=== PATIENT | female | born 1985 | race Caucasian/White ===

== ENCOUNTER 2018-09-30 10:23 | Day surgery (SDC) | payer OTHER, SELFPAY ==
[2018-09-09 09:40] VITALS: BMI 26.2
[2018-09-30] VITALS (8 sets, daily range): BP systolic 105–125; BP diastolic 62–78; PULSE 54–76; RESP 16–18; TEMP 36.5–37.9; O2SAT 99–100; BMI 25.9
[2018-09-30 11:15] LABS: Internal QC Validated? YES +Cl - CLEAR BKGD; Pregnancy, Urine Negative Negative
--- NOTE | 2018-09-30 11:30 | HERN_PTH ---
PATIENT: JAMILAH TEE [place] [facility] [id number] AGE/SX: 33/F ROOM: RE09/30/[address]: Dr. Godfrey Gilbert MD : [id number] BED: DIS: 09/30/2018 SPEC #: [id number] RECD: 09/30/18 16:04 STATUS: KATELIN ALEXUS #: [id number] JANIYA: 09/30/18 11:[address]: Godfrey Gilbert DEPT: SURGICAL PATHOLOGY RECD BY: Fernando Elaine ENTERED: 10/01/18 08:46 SP TYPE: Hernia OTHR DR: No Primary Care Phys Tissues: HERNIA Procedures: Surgery Specimen Level II HEADER OPERATION: Umbilical hernia repair PRE-OP DIAGNOSIS: Umbilical hernia without obstruction or gangrene TISSUE SUBMITTED: Hernia sac MICROSCOPIC DIAGNOSIS Hernia sac: Mesothelial-lined fibroadipose and fibroconnective tissue, consistent with hernia sac. SJ:mike 10/02/18 MICROSCOPIC DESCRIPTION Slides are reviewed. GROSS DESCRIPTION Received in fixative is one container labeled with the patient's name and designated hernia sac. The specimen consists of two pieces of saenz-yellow fibroadipose tissue measuring in aggregate 1.5 x 1.5 x 0.4 cm. Both pieces are bisected. The entire specimen is submitted in one cassette. / SJ:rg 10/01/18 TC:5 CPT: 52156
[2018-09-30] MEDS: Cefazolin 2 GM in 0.9% Normal Saline 100 ML IV (12:21)
[2018-09-30] MEDS: Bupiv/Epi 0.5% Mpf 30 ML Vial (12:38)
--- NOTE | 2018-09-30 12:55 | PCM.OPRPT ---
Problem List (1) Umbilical hernia Status: Acute Qualifiers: Obstruction and gangrene presence: without obstruction or gangrene Qualified Code(s): K42.9 - Umbilical hernia without obstruction or gangrene Report of Operation Date of Procedure: 09/30/18 Pre-Operative Diagnosis: Umbilical hernia Post-Operative Diagnosis: Same Surgery/Procedure Performed:: Umbilical hernia repair Specimen's removed: Hernia sac Description of Procedure: Patient was brought back to the operating room and MAC anesthesia was induced. Next the inferior umbilicus was marked and then injected with lidocaine Marcaine mixture. An incision was made in the inferior umbilical crease and the umbilical skin was retracted superiorly away from the hernia sac. The hernia sac was excised. The hernia contents were reduced into the abdomen. The umbilical opening was approximately 1 cm diameter. This was closed with 3 0-PDS [id number] sutures. The umbilicus was then irrigated and the umbilical stalk was sutured to the fascia using a 3-0 Vicryl suture. Next using 4-0 Monocryl sutures the skin was reapproximated and Steri-Strips were applied. A cotton ball was placed into the umbilicus along with a pressure dressing. The patient tolerated the procedure well and was taken to PACU in stable condition. - Admit VTE Documentation VTE Mechan Device Prophylaxis: SCD's
--- NOTE | 2018-09-30 12:59 | OP.PCM_ITS ---
Problem List (1) Umbilical hernia Status: Acute Qualifiers: Obstruction and gangrene presence: without obstruction or gangrene Qualified Code(s): K42.9 - Umbilical hernia without obstruction or gangrene Report of Operation Date of Procedure: 09/30/18 Pre-Operative Diagnosis: Umbilical hernia Post-Operative Diagnosis: Same Surgery/Procedure Performed:: Umbilical hernia repair Specimen's removed: Hernia sac Description of Procedure: Patient was brought back to the operating room and MAC anesthesia was induced. Next the inferior umbilicus was marked and then injected with lidocaine Marcaine mixture. An incision was made in the inferior umbilical crease and the umbilical skin was retracted superiorly away from the hernia sac. The hernia sac was excised. The hernia contents were reduced into the abdomen. The umbilical opening was approximately 1 cm diameter. This was closed with 3 0-PDS [id number] sutures. The umbilicus was then irrigated and the umbilical stalk was sutured to the fascia using a 3-0 Vicryl suture. Next using 4-0 Monocryl sutures the skin was reapproximated and Steri-Strips were applied. A cotton ball was placed into the umbilicus along with a pressure dressing. The patient tolerated the procedure well and was taken to PACU in stable condition. - Admit VTE Documentation VTE Mechan Device Prophylaxis: SCD's
--- NOTE | 2018-09-30 13:03 | DCINST_ITS ---
Discharge Diet: Light diet - advance as tolerated Discharge Activity: Return to Normal Activity, May Not Drive - for 2-3 days or while taking narcotic pain meds., May Shower - with the bandage in place 1-2 days after surgery. Lifting Restrictions: 20 pounds for 2 weeks. Additional Activity Instructions:: Climbing stairs is fine, walking is encouraged. Sitting in bed may be uncomfortable. Sitting up using your lateral muscles (sitting up sideways) is usually more comfortable. Do not drive, work heavy equipment of sign legal documents for 24 hours. Pain medications may cause nausea, you should typically eat light foods as you take your pain medications. Pain medications may also cause constipation. If you have difficulty with this, discuss with your doctor. Call your doctor if your incision/area has: Continuous Slow Oozing, Sudden Increased Bleeding, Increased Pain/ Swelling, Increased Redness, Foul Smelling Discharge Call your doctor if you observe: Fever of 101 or Higher Suture Line Care: Avoid Pulling/Pushing, Avoid Pinching/Bending Change Dressing in (Days):: 3 - Leave steri-strips for 1 week. May protect with a guaze bandaid. Cleanse incision/area with: Keep Dressing Clean & Dry Allergies/Adverse Reactions: Allergies citalopram hydrobromide [From Celexa] Allergy (Verified 09/23/18 16:06) Other Medications to take at Discharge fluoxetine 40 mg capsule 60 mg PO DAILY cap 09/09/18 Oxycodone HCl/Acetaminophen [Percocet 5/325] 1 - 2 tablet PO Q4H PRN PRN 7 Days #20 tablet 09/30/18 The following prescriptions were given: Oxycodone HCl/Acetaminophen [Percocet 5/325] 1 - 2 tablet PO Q4H PRN PRN 7 Days #20 tablet PRN Reason: Pain Primary Care Physician: Care Physician,No Primary [Primary Care Provider] - Test Results: Test results from this visit will be discussed in further detail at your follow- up appointment, if applicable. Please Follow Up With: Godfrey Gilbert MD When: Please call to schedule 2 week follow up appointment. [phone]
== END 2018-09-30 14:26 | disposition home or self-care (01) ==
LOC: SDC 10:24 → AC 10:25
PROVIDERS: Anesthesiology; Referring Provider Surgery; Visit Provider Surgery
PROC: (CPT 49585; principal; 2018-09-30 11:15)
DX: K42.9 Umbilical hernia without obstruction or gangrene (principal); F41.9 Anxiety disorder, unspecified; Z79.899 Other long term (current) drug therapy
CPT/HCPCS: 00830; 49585; 81025; 88302; J7120

== ENCOUNTER → 2018-11-06 16:27 | Outpatient (CLI) | payer OTHER, SELFPAY ==
[2018-09-30 10:42] VITALS: BMI 25.9
[2018-11-06 17:35] LABS: Absolute Neutrophil Count 4.2 X10^3/uL (2.0-7.7); Basophil# 0.07 X10^3/uL; Basophil% 0.9 % (0-1); Eosinophil# 0.13 X10^3/uL; Eosinophils% 1.7 % (0-5); Hematocrit 37.2 % (37-47); Hemoglobin 12.1 g/dl (12.0-15.0); Lymphocyte % 35.9 % (19-41); Mean Corp Hgb Conc 32.5 g/gl (32-36); Mean Corpuscular Hgb 28.5 pg (27.0-32.0); Mean Corpuscular Volume 87.5 fL (81-99); Mean Platelet Vol. 13.5 fl (6.2-12.0); Monocyte# 0.42 X10^3/uL; Monocyte% 5.6 % (0-10); Neutrophil # 4.19 X10^3/uL (2.7-7.7); Neutrophil % 55.8 % (47-70); Platelet Count 203 K/mm3 (150-450); RBC Distribution Width CV 13.2 % (11.6-14.6); RBC Distribution Width SD 41.4 fl (35.1-43.9); Red Blood Count 4.25 M/mm3 (4.2-5.4); White Blood Count 7.5 K/mm3 (4.4-11.0)
[2018-11-06 17:51] LABS: POSITIVE COUNT NO; POSITIVE DIFFERENTIAL NO; POSITIVE MORPHOLOGY NO
[2018-11-06 18:39] LABS: ALB/GLOB Ratio 1.2 RATIO (0.9-2.4); AST(SGOT) 19 U/L (15-37); Alanine Aminotransfer ALT/SGPT 32 U/L (13-56); Albumin, Serum 4.2 g/dL (3.2-5.0); Alkaline Phosphatase 70 U/L (45-117); Anion Gap 5 (5-15); BUN 16 mg/dL (7-18); BUN/Creat Ratio 21.9 RATIO (10-20); Calcium,Total 8.8 mg/dL (8.5-10.1); Chloride 105 mmol/L (98-107); Creatinine, Serum 0.73 mg/dL (0.55-1.02); EST Glomerular Filtration Rate 96 mL/min (>60); Est Glom Filt Rate - Afr Amer 116 mL/min (>60); Globulin 3.4 g/dL (2.2-4.2); Glucose 80 mg/dL (74-106); Potassium 4.1 mmol/L (3.5-5.1); Protein, Total 7.6 g/dL (6.4-8.2); Sodium Level 137 mmol/L (136-145)
[2018-11-06 19:22] LABS: HIV - WCH Non-Reactive (Nonreactive)
[2018-11-09 20:06] LABS: HEPATITIS B SURFACE AG Negative (Negative); Hepatitis A AB, Total Negative (Negative); Hepatitis A IgM Antibody Negative (Negative); Hepatitis B Core AB IgM Negative (Negative); Hepatitis B Core Ab Total Negative (Negative); Hepatitis C Ab <0.1 s/co ratio (0.0-0.9); QNTFERON TB Mitogen Value > 10.00 IU/mL (.); QNTFERON TB Nil Value 0.02 IU/mL (.); QNTFERON TB1+ Ag Value 0.02 IU/mL (.); QNTFERON TB2+ Ag Value 0.02 IU/mL (.)
[2018-11-10 08:14] LABS: Hep B Surface Antibodies Non Reactive (.); QNTIFERON TB Positive Criteria Negative (Negative)
== END ==
PROVIDERS: Referring Provider Physician Assistant; Visit Provider Physician Assistant
DX: L40.0 Psoriasis vulgaris (principal)
CPT/HCPCS: 36415; 80053; 85025; 86480; 86703; 86704; 86705; 86706; 86708; 86709; 86803; 87340

== ENCOUNTER → 2019-04-17 | Outpatient (CLI) | payer OTHER, SELFPAY ==
[2018-09-30 10:42] VITALS: BMI 25.9
--- NOTE | 2019-04-17 12:06 | RAD_ITS ---
STUDY: X-RAY - PELVIS REASON FOR EXAM: Female, 33 years old. Psoriatic arthropathy TECHNIQUE: One view of the pelvis was obtained. COMPARISON: None. FINDINGS: There is a non-specific bowel gas pattern. Normal visualized soft tissue structures. Normal bilateral iliac wings, sacroiliac joints and visualized sacrum. Normal visualized bilateral superior and inferior pubic rami. Normal pubic symphysis. Normal ischial tuberosities. Normal visualized right femoral head. Normal right acetabulum. Normal right hip joint. Normal visualized left femoral head. Normal left acetabulum. Normal left hip joint. RAD/Pelvis 1 or 2 Views IMPRESSION: Normal x-ray examination of the pelvis. Electronically Signed: Akira Byers MD at 22:21 EDT , Service support ,
--- NOTE | 2019-04-17 12:06 | RAD_ITS ---
STUDY: X-RAY CHEST REASON FOR EXAM: Female, 33 years old. Psoriatic arthropathy TECHNIQUE: Frontal and lateral views of the chest. COMPARISON: None. FINDINGS: The lungs are clear and expanded. There is no demonstrated pleural abnormality. Normal size heart. Normal mediastinum and jorge a. Normal visualized pulmonary arteries. Normal visualized aortic arch and descending thoracic aorta. Normal visualized thoracic spine. Normal visualized ribs, clavicles, and shoulders. There is no demonstrated abnormality of the visualized soft tissue structures of the upper abdomen. RAD/Chest PA and Lateral IMPRESSION: Normal x-ray examination of the chest. Electronically Signed: Akira Byers MD at 22:20 EDT , Service support ,
[2019-04-17 14:10] LABS: Absolute Lymphocyte Count 2.26 X10^3/uL (0.83-4.51); Absolute Neutrophil Count 3.3 X10^3/uL (2.0-7.7); Basophil# 0.06 X10^3/uL; Eosinophil# 0.11 X10^3/uL; Eosinophils% 1.8 % (0-5); Hemoglobin 12.3 g/dL (12.0-15.0); Lymphocyte # 2.26 X10^3/ul (4.0); Mean Corp Hgb Conc 33.2 g/dL (32-36); Mean Corpuscular Hgb 29.3 pg (27.0-32.0); Mean Corpuscular Volume 88.1 fL (81-99); Mean Platelet Vol. 12.9 fl (6.2-12.0); Monocyte# 0.51 X10^3/uL; Monocyte% 8.1 % (0-10); NRBC Flagged by Analyzer 0 % (0-5); Neutrophil # 3.33 X10^3/uL (2.7-7.7); Neutrophil % 52.9 % (47-70); Platelet Count 232 K/mm3 (150-450); RBC Distribution Width CV 12.2 % (11.6-14.6); RBC Distribution Width SD 39.3 fl (35.1-43.9); White Blood Count 6.3 K/mm3 (4.4-11.0)
[2019-04-17 14:26] LABS: Erythrocyte Sedimentation Rate 4 mm/hr (0-20)
[2019-04-17 14:31] LABS: ALB/GLOB Ratio 1.1 RATIO (0.9-2.4); AST(SGOT) 15 U/L (15-37); Alanine Aminotransfer ALT/SGPT 28 U/L (13-56); Alkaline Phosphatase 59 U/L (45-117); Anion Gap 8 (5-15); BUN 10 mg/dL (7-18); BUN/Creat Ratio 13.9 RATIO (10-20); CRP < 2.90 mg/L (0.0-3.0); Chloride 106 mmol/L (98-107); Creatinine, Serum 0.72 mg/dL (0.55-1.02); EST Glomerular Filtration Rate 98 mL/min (>60); Est Glom Filt Rate - Afr Amer 118 mL/min (>60); Globulin 3.7 g/dL (2.2-4.2); Glucose 81 mg/dL (74-106); Potassium 4.1 mmol/L (3.5-5.1); Protein, Total 7.7 g/dL (6.4-8.2); Rheumatoid Factor < 10.0 IU/mL (<15); Sodium Level 140 mmol/L (136-145)
[2019-04-18 09:14] LABS: Hepatitis B Surface Antibody Non-Reactive; Hepatitis B Surface Antigen Non-Reactive (Nonreactive); Hepatitis C Antibody Non-Reactive (Nonreactive)
[2019-04-19 09:32] LABS: ANTINUCLEAR ANTIBODIES DIRECT Negative (Negative)
[2019-04-20 03:08] LABS: QNTFERON TB Mitogen Value > 10.00 IU/mL (.); QNTFERON TB Nil Value 0.02 IU/mL (.); QNTFERON TB1+ Ag Value 0.02 IU/mL (.); QNTFERON TB2+ Ag Value 0.02 IU/mL (.)
[2019-04-20 09:10] LABS: CCP IgG Antibodies < 1 units (0-19); Hepatitis B Core AB IgM Negative (Negative); QNTIFERON TB Positive Criteria Negative (Negative)
== END | disposition home or self-care (01) ==
LOC: MTRAD 12:02
PROVIDERS: Referring Provider Internal Medicine Rheumatology; Visit Provider Internal Medicine Rheumatology
DX: L40.59 Other psoriatic arthropathy (principal); L40.8 Other psoriasis; M21.40 Flat foot [pes planus] (acquired), unspecified foot; F41.9 Anxiety disorder, unspecified; F32.89 Other specified depressive episodes
CPT/HCPCS: 36415; 71046; 72170; 80053; 85025; 85652; 86038; 86140; 86200; 86431; 86480; 86705; 86706; 86803; 87340

== ENCOUNTER → 2019-11-04 | Outpatient (CLI) | payer OTHER, SELFPAY ==
[2018-09-30 10:42] VITALS: BMI 25.9
[2019-11-04 17:43] LABS: Absolute Lymphocyte Count 2.74 X10^3/uL (0.83-4.51); Basophil# 0.07 X10^3/uL; Basophil% 0.8 % (0-1); Eosinophils% 1.2 % (0-5); Hematocrit 37.9 % (37-47); Hemoglobin 12.6 g/dL (12.0-15.0); Lymphocyte # 2.74 X10^3/ul (4.0); Lymphocyte % 32.7 % (19-41); Mean Corp Hgb Conc 33.2 g/dL (32-36); Mean Corpuscular Volume 87.1 fL (81-99); Mean Platelet Vol. 12.8 fl (6.2-12.0); Monocyte# 0.49 X10^3/uL; Monocyte% 5.9 % (0-10); NRBC Flagged by Analyzer 0 % (0-5); Neutrophil # 4.95 X10^3/uL (2.7-7.7); Neutrophil % 59.2 % (47-70); Platelet Count 270 K/mm3 (150-450); RBC Distribution Width CV 11.9 % (11.6-14.6); RBC Distribution Width SD 38.5 fl (35.1-43.9); Red Blood Count 4.35 M/mm3 (4.2-5.4); White Blood Count 8.4 K/mm3 (4.4-11.0)
[2019-11-04 17:53] LABS: AST(SGOT) 18 U/L (15-37); Alanine Aminotransfer ALT/SGPT 28 U/L (13-56); Albumin, Serum 4.1 g/dL (3.2-5.0); Alkaline Phosphatase 72 U/L (45-117); Anion Gap 7 (5-15); BUN 12 mg/dL (7-18); BUN/Creat Ratio 16.3 RATIO (10-20); Chloride 103 mmol/L (98-107); Creatinine, Serum 0.73 mg/dL (0.55-1.02); EST Glomerular Filtration Rate 95 mL/min (>60); Est Glom Filt Rate - Afr Amer 115 mL/min (>60); Globulin 4.2 g/dL (2.2-4.2); Glucose 80 mg/dL (74-106); Potassium 3.9 mmol/L (3.5-5.1); Protein, Total 8.3 g/dL (6.4-8.2); Sodium Level 138 mmol/L (136-145)
== END | disposition home or self-care (01) ==
LOC: MTLAB 16:16
PROVIDERS: Referring Provider Internal Medicine Rheumatology; Visit Provider Internal Medicine Rheumatology
DX: L40.59 Other psoriatic arthropathy (principal); L40.8 Other psoriasis; M21.40 Flat foot [pes planus] (acquired), unspecified foot; F41.9 Anxiety disorder, unspecified; F32.89 Other specified depressive episodes; Z79.899 Other long term (current) drug therapy
CPT/HCPCS: 36415; 80053; 85025

== ENCOUNTER → 2020-01-15 | Outpatient (CLI) | payer OTHER, SELFPAY ==
[2018-09-30 10:42] VITALS: BMI 25.9
[2020-01-18 03:06] LABS: QNTFERON TB Mitogen Value > 10.00 IU/mL (.); QNTFERON TB Nil Value 0.01 IU/mL (.); QNTFERON TB1+ Ag Value 0.02 IU/mL (.); QNTFERON TB2+ Ag Value 0.01 IU/mL (.)
[2020-01-19 00:19] LABS: QNTIFERON TB Positive Criteria Negative (Negative)
== END | disposition home or self-care (01) ==
LOC: MTLAB 16:32
PROVIDERS: Referring Provider Dermatology Pediatric Dermatology; Visit Provider Dermatology Pediatric Dermatology
DX: L40.0 Psoriasis vulgaris (principal)
CPT/HCPCS: 36415; 86480

== ENCOUNTER → 2020-01-28 | Outpatient (CLI) | payer OTHER, SELFPAY ==
[2018-09-30 10:42] VITALS: BMI 25.9
[2020-01-28 10:33] LABS: hCG Titer Quant., Serum 72 mIU/mL (1-3)
== END | disposition home or self-care (01) ==
LOC: MTLAB 08:56
PROVIDERS: Referring Provider Obstetrics & Gynecology Reproductive Endocrinology; Visit Provider Obstetrics & Gynecology Reproductive Endocrinology
DX: Z32.00 Encounter for pregnancy test, result unknown (principal)
CPT/HCPCS: 36415; 84702

== ENCOUNTER → 2020-01-30 | Outpatient (CLI) | payer OTHER, SELFPAY ==
[2018-09-30 10:42] VITALS: BMI 25.9
[2020-01-30 10:44] LABS: hCG Titer Quant., Serum 203 mIU/mL (1-3)
[2020-01-30 10:46] LABS: Thyroid Stim Hormone (TSH) 2.17 uIU/mL (0.358-3.74)
== END | disposition home or self-care (01) ==
LOC: MTLAB 08:22
PROVIDERS: Referring Provider Obstetrics & Gynecology Reproductive Endocrinology; Visit Provider Obstetrics & Gynecology Reproductive Endocrinology
DX: E03.9 Hypothyroidism, unspecified (principal); Z32.00 Encounter for pregnancy test, result unknown
CPT/HCPCS: 36415; 84443; 84702

== ENCOUNTER → 2020-07-14 16:30 | Outpatient (CLI) | payer OTHER, SELFPAY ==
[2020-07-14 16:05] VITALS: BMI 29.9
[2020-07-14 16:53] LABS: Absolute Lymphocyte Count 2.17 X10^3/uL (0.83-4.51); Absolute Neutrophil Count 10.1 X10^3/uL (2.0-7.7); Basophil# 0.06 X10^3/uL; Basophil% 0.5 % (0-1); Eosinophil# 0.07 X10^3/uL; Eosinophils% 0.5 % (0-5); Hematocrit 32.9 % (37-47); Hemoglobin 10.9 g/dL (12.0-15.0); Lymphocyte # 2.17 X10^3/ul (4.0); Lymphocyte % 16.3 % (19-41); Mean Corp Hgb Conc 33.1 g/dL (32-36); Mean Corpuscular Volume 90.6 fL (81-99); Mean Platelet Vol. 11.7 fl (6.2-12.0); Monocyte# 0.85 X10^3/uL; Monocyte% 6.4 % (0-10); NRBC Flagged by Analyzer 0 % (0-5); Neutrophil # 10.08 X10^3/uL (2.7-7.7); Neutrophil % 75.8 % (47-70); Platelet Count 214 K/mm3 (150-450); RBC Distribution Width CV 12.5 % (11.6-14.6); RBC Distribution Width SD 41.1 fl (35.1-43.9); Red Blood Count 3.63 M/mm3 (4.2-5.4); White Blood Count 13.3 K/mm3 (4.4-11.0)
[2020-07-14 17:30] LABS: Glucose Challenge Gest 1H 50g 76 mg/dL (70-140)
== END ==
PROVIDERS: Visit Provider Obstetrics & Gynecology
DX: O09.819 Supervision of pregnancy resulting from assisted reproductive technology, unspecified trimester (principal); Z3A.00 Weeks of gestation of pregnancy not specified
CPT/HCPCS: 36415; 82950; 85025

== ENCOUNTER → 2020-09-09 | Outpatient (CLI) | payer OTHER, SELFPAY ==
[2020-09-09 16:06] VITALS: BMI 30.7
== END | disposition home or self-care (01) ==
LOC: LABSPEC 18:17
PROVIDERS: Visit Provider Obstetrics & Gynecology
DX: Z34.90 Encounter for supervision of normal pregnancy, unspecified, unspecified trimester (principal)
CPT/HCPCS: 87081

== ENCOUNTER → 2020-09-10 14:57 | Outpatient (CLI) | payer OTHER, SELFPAY ==
[2020-09-09 16:06] VITALS: BMI 30.7
--- NOTE | 2020-09-10 15:00 | US_ITS ---
STUDY: SECOND AND THIRD TRIMESTER OBSTETRICAL ULTRASOUND - LIMITED REASON FOR EXAM: Female, 35 years old GROWTH LMP: 12/31/2019 PRIOR ULTRASOUND: None. TECHNIQUE: Transabdominal TECHNICAL QUALITY: Adequate. FINDINGS: There is a single intrauterine fetus. The fetus is in a cephalic presentation. There is demonstrated cardiac activity with a heart rate of 137 bpm. There is a normal amniotic fluid volume. The largest amniotic fluid pocket measures 5.2 cm. The amniotic fluid index (NELDA) is 17.8 cm. The placenta is fundal in location. There are Grade 2 placental changes. The cervix measures 3.1 cm in length. BIOMETRY: BPD: 8.8 cm: 35 weeks, 2 days HC: 31.8 cm: 35 weeks, 5 days AC: 32.8 cm: 36 weeks, 5 days FL: 6.5 cm: 33 weeks, 4 days Age by LMP: 36 weeks, 2 days. TIFFANIE by LMP: 10/06/2020. age by current US: 35 weeks, 2 days. TIFFANIE by current US: 10/13/2020. Estimated weight: 2774 grams, +/- 416 grams, 40 percentile. Gender: US/OB Limited With Biometrics IMPRESSION: Living intrauterine of 35 weeks 2 days as described above. Electronically Signed: Carlos Bob MD at 7:12 EST Tel , Service support ,
== END ==
PROVIDERS: Referring Provider Obstetrics & Gynecology; Visit Provider Obstetrics & Gynecology
DX: O26.843 Uterine size-date discrepancy, third trimester (principal); Z3A.00 Weeks of gestation of pregnancy not specified
CPT/HCPCS: 76816

== ENCOUNTER 2020-09-24 17:56 | Inpatient (IN) | payer OTHER, SELFPAY ==
[2020-06-28 16:24] VITALS: BMI 29.2
[2020-08-26 16:05] VITALS: BMI 30.2
[2020-09-23 16:05] VITALS: BMI 31.6
[2020-09-24] VITALS (12 sets, daily range): BP systolic 89–123; BP diastolic 40–91; PULSE 56–94; RESP 13–21; TEMP 36.3–36.8; O2SAT 97–100; BMI 29.3
[2020-09-24] MEDS: Lactated Ringers 1,000 ML 999 ML IV (18:26)
[2020-09-24 18:53] LABS: Absolute Lymphocyte Count 2.21 X10^3/uL (0.83-4.51); Absolute Neutrophil Count 9.2 X10^3/uL (2.0-7.7); Basophil# 0.04 X10^3/uL; Basophil% 0.3 % (0-1); Eosinophil# 0.05 X10^3/uL; Eosinophils% 0.4 % (0-5); Hematocrit 37.6 % (37-47); Hemoglobin 12.8 g/dL (12.0-15.0); Lymphocyte # 2.21 X10^3/ul (4.0); Mean Corpuscular Hgb 30.4 pg (27.0-32.0); Mean Corpuscular Volume 89.3 fL (81-99); Mean Platelet Vol. 12.4 fl (6.2-12.0); Monocyte# 0.72 X10^3/uL; Monocyte% 5.9 % (0-10); NRBC Flagged by Analyzer 0 % (0-5); Neutrophil # 9.22 X10^3/uL (2.7-7.7); Neutrophil % 74.9 % (47-70); Platelet Count 231 K/mm3 (150-450); RBC Distribution Width CV 12.4 % (11.6-14.6); RBC Distribution Width SD 40.3 fl (35.1-43.9); Red Blood Count 4.21 M/mm3 (4.2-5.4); White Blood Count 12.3 K/mm3 (4.4-11.0)
[2020-09-24] MEDS: Lactated Ringers 1,000 ML 150 ML IV (19:27)
--- NOTE | 2020-09-24 20:04 | HP.PCM_ITS ---
- Problem List (1) SROM (spontaneous rupture of membranes) Status: Acute (2) 35 weeks gestation of Status: Acute Comment: electronic covid test ordered ( scheduled for 09/23/20 at 1655) (3) Anemia affecting Status: Acute Comment: iron added (4) Anxiety and depression Status: Acute Comment: prozac, counseling and psychiatrist. (5) Conceived by in vitro fertilization Status: Acute Comment: echo normal 06/11/20; growth q4w (6) History of delivery Status: Acute Comment: previous cs x 2, plan repeat with SM. Scheduled 10/01/20 @ 7:30 Covid test ordered (7) Status: Acute Qualifiers: Comment: carrier screening cystic fibrosis and SMA negative, nl preimplantation genetics. PRR normal anatomy scan 05/20/20 (8) Supervision of resulting from assisted reproductive technology Status: Acute Comment: PRR TIFFANIE 10/06/19 surprise PC Case, Marla Ld (9) Uterine size-date discrepancy in third trimester Status: Acute Comment: growth US- NL History and Physical Date of Admission: 09/24/20 Intake Vital Signs 09/23/20 Height 5 ft 09/23/20 Weight: 162 lb 09/23/20 BMI 31.6 09/23/20 BP 138/82 H Intake Visit Reasons: 38 WK OB Chief Complaint: est ob Manager [employer] Required: No Is patient in pain?: No Allergies citalopram hydrobromide [From Celexa] Allergy (Verified 09/23/20 16:06) Other Medications fluoxetine 40 mg capsule 60 mg PO DAILY cap 09/09/18 [History Confirmed 09/23/20] aspirin 81 mg tablet,delayed release 81 mg PO DAILY 04/05/20 [History Confirmed 09/23/20] certolizumab pegol 200 mg SC Q2W 04/05/20 [History Confirmed 09/23/20] vitamin #56-iron 35 mg and 5 mg-folic acid 1 mg-dha capsule 1 cap PO DAILY 04/05/20 [History Confirmed 09/23/20] Naproxen [Naprosyn] 250 - 500 mg PO Q8H PRN PRN #30 tab 09/24/20 [Rx] Oxycodone HCl/Acetaminophen [Percocet 5-325] 1 - 2 tab PO Q6H PRN PRN 7 Days #15 tab 09/24/20 [Rx] Last Menstral Period: 01/19/20 Zika: Zika virus screening: Negative : No PFSH PFSH Medical History Infertility (Acute) Psychiatric disorder (Acute) Thyroid disease (Acute) Surgical History Carpal tunnel syndrome (Acute) delivery delivered (Acute) History of umbilical hernia (Acute) Family History Grandmother Breast cancer Social History (Updated 09/24/20 @ 19:[address] Ernestine Villa MD) Smoking Status: Never smoker second hand exposure: No alcohol intake: current details: social use/pre substance use type: does not use caffeine: Yes what type of physical activity do you participate in: running frequency: 3-4 times per week duration: 15-30 minutes/day seatbelt use: always do you feel safe at home: Yes additional social history: Spouse Ld Pregancy History 2 Elective abortions Hx Para 2 Spontaneous abortions Hx # Term Pregnancies Ectopic pregnancies Hx # Pregnancies Multiple births # of living children Past Pregnancies Del. Date Name GA/Weeks Outcome Route Bth Weight Infant Gen Labor Lgth Anesthesia Del Locatn Provider FOB Unknown Marla 03/25/[address] [facility] MARIBELL 06/14/17 Case 36 live - full term C- section Male [facility] MARIBELL HPI 38 WK OB: Details: JAMILAH TEE is a 35 year old G3, P2 at 38 weeks presents with clear rupture of membranes since this evening. Patient has occasional contractions no vaginal bleeding admits good movement. OB Visit TIFFANIE Calculator Estimated Delivery Date Method Current WG Current Estimate 10/06/20 LMP (Certain) 38w 2d Expected Delivery Route/Plan RLTCS w/ SM Specific Issue/Plans flu vaccine: given tdap vaccine: given 07/29/20 rhogam: na LARC form signed: declines movement and labor precautions reviewed. Problem list reviewed and updated with the most current plan of care details and appropriate orders placed. Relevant counseling for the gestational age provided. Continue routine care and follow up unless otherwise noted in visit notes/problem list details Initial Weight: 140 lb Date EGA Weight BP Urine Prot Glucose FHR FuHt Pres Dilation Effaced St Visit Note 04/05/20 13w 5d 145 lb 6 oz (+5 lb 6 oz) 140 SM- no vb lof crmaping. RUBEN RGI 05/03/20 17w 5d 145 lb (+5 lb) 110/72 Negative Negative 150 SM- no vb cramping, considering afp 06/01/20 21w 6d 149 lb (+9 lb) 149 lb (+9 lb) 120/82 Negative Negative 146 22 MH:No VB, LOF. Good FM. Has echo scheduled. 06/28/20 25w 5d 150 lb (+10 lb) Negative Negative 140 25 SM- no vb lof good fm no reuglar ctx 07/14/20 28w 0d 153 lb (+13 lb) 122/76 140 28 GP - no LOF, VB, DFM, regular ctx. 28wk labs after visit today. 07/29/20 30w 1d 151 lb (+11 lb) 112/72 Negative Negative 140 30 SM- no vb lof good fm no regular ctx 08/11/20 32w 0d 153 lb 2 oz (+13 lb 2 oz) 110/76 Negative Negative 125 32 GP - no LOF, VB, DFM, ctx. TDAP given today. 08/26/20 34w 1d 155 lb (+15 lb) 114/70 130 34 SM- no vb lof good fm n oregular ctx 09/09/20 36w 1d 157 lb (+17 lb) 130/82 Negative Negative 120 34 SM- ordered growth us for low FH. no vb lof good fm no reugar ctx gbs done 09/17/20 37w 2d 159 lb (+19 lb) 122/70 Negative Negative 115 36 SM- no vb lof good fm no regular ctx 09/23/20 38w 1d 162 lb (+22 lb) 138/82 Negative Negative 120 SM- no vb lof good fm no regular ctx ACOG First Trimester First Trimester: Discussed Diagnostics Diagnostics Diagnostics Blood Type Pending 09/24/20 Antibody Screen Pending 09/24/20 Glucose 1 Hr 50 gm 76 mg/dL (70-140) 07/14/20 Hgb 12.8 g/dL (12.0-15.0) 09/24/20 Hct 37.6 % (37-47) 09/24/20 Details: HIV: Urine Culture: Sequential Screen: NIPT Screen: ROS Const Reports system reviewed and no additional complaints, except as docu Card Reports system reviewed and no additional complaints, except as docu Resp Reports system reviewed and no additional complaints, except as docu GI Reports system reviewed and no additional complaints, except as docu, Reports nausea Reports system reviewed and no additional complaints, except as docu Musc Reports system reviewed and no additional complaints, except as docu Exam Const General: cooperative, healthy appearing, comfortable, anxious HENMT Head: normal to inspection Nose: external nose normal Face and sinus: normal facial exam Neck Neck: normal visual inspection, full ROM, no lymphadenopathy Thyroid: thyroid normal Chest Chest palpation & inspection: normal inspection of the chest Resp Effort & Inspection: normal respiratory effort GI Inspection: normal to inspection Palpation: soft, other (gravid uterus) Other: vertex and appropriate size for gestational age Other: Cervical Exam: Extrem General: pedal edema Results POC Urinalysis 2 Dip (Clinic) Office Urine Glucose Negative Last Edit by Kavya Sal on 09/23/20 16:1 0 Office Urine Protein Negative Last Edit by Kavya Sal on 09/23/20 16:1 0 Assessment & Plan Problems 1. 35 weeks gestation of Z3A.35 electronic covid test ordered ( scheduled for 09/23/20 at 1655) 2. Anemia affecting O99.019 iron added 3. Conceived by in vitro fertilization Z78.9 echo normal 06/11/20; growth q4w 4. History of delivery Z98.891 previous cs x 2, plan repeat with . Scheduled 10/01/20 @ 7:30 Covid test ordered 5. Supervision of resulting from assisted reproductive technology O09.819 PRR TIFFANIE 10/06/19 surprise PC Case, Marla Ld 6. Anxiety and depression F41.9; F32.9 prozac, counseling and psychiatrist. 7. Z34.90 carrier screening cystic fibrosis and SMA negative, nl preimplantation genetics. PRR normal anatomy scan 05/20/20 35-year-old G3, P2 at 38 weeks presents with clear loss of fluid SROM previous x2 declines Plan repeat low transverse Orders Orders: POC Urinalysis 2 Dip (Clinic) 09/23/20 Coding Level of Care Code OB Routine Diagnoses 35 weeks gestation of Z3A.35 Anemia affecting O99.019 Conceived by in vitro fertilization Z78.9 History of delivery Z98.891 Supervision of resulting from assisted reproductive technology O09.819 Anxiety and depression F41.9; F32.9 Z34.90
[2020-09-24] MEDS: Acetaminophen 500 MG Tablet 1000 MG PO (20:10)
--- NOTE | 2020-09-24 20:10 | OP.PCM_ITS ---
Problem List (1) SROM (spontaneous rupture of membranes) Status: Acute (2) 35 weeks gestation of Status: Acute Comment: electronic covid test ordered ( scheduled for 09/23/20 at 1655) (3) Anemia affecting Status: Acute Comment: iron added (4) Anxiety and depression Status: Acute Comment: prozac, counseling and psychiatrist. (5) Conceived by in vitro fertilization Status: Acute Comment: echo normal 06/11/20; growth q4w (6) History of delivery Status: Acute Comment: previous cs x 2, plan repeat with SM. Scheduled 10/01/20 @ 7:30 Covid test ordered (7) Status: Acute Qualifiers: Comment: carrier screening cystic fibrosis and SMA negative, nl preimplantation genetics. PRR normal anatomy scan 05/20/20 (8) Supervision of resulting from assisted reproductive technology Status: Acute Comment: PRR TIFFANIE 10/06/19 surprise PC Case, Marla Ld (9) Uterine size-date discrepancy in third trimester Status: Acute Comment: growth US- NL Delivery Classification: SHANNON Final TIFFANIE: 10/05/20 Gestational age: 38 Weeks and 3 Days allergy and immunology chief: Irene Figueroa Type of Anesthesia:: Spinal Special Medications: none Implants Used: none Date of Procedure: 09/24/20 Pre-Operative Diagnosis: previous cs x 2 and SROM Post-Operative Diagnosis: same Indications for : Repeat Elective Description of Procedure: Patient presented with clear rupture of membranes at 38 weeks 3 days declined trial of labor after plan low transverse . spinal anesthesia was placed without difficulty. Bhardwaj catheter was placed. The patient was placed in the dorsal supine position with leftward tilt. Patient was prepped and draped in the normal sterile fashion. Pfannenstiel skin incision was made with the scalpel and carried through to the underlying layer of fascia with the scalpel. Fascia was nicked in the midline and the incision extended laterally. The rectus bellies were dissected off superiorly and inferiorly with out complication both sharply and bluntly. The peritoneum was entered digitally. The incision was stretched and a low transverse uterine incision was made with the scalpel. The 's head was delivered atraumatically followed by the anterior and posterior shoulders without complication the rest of the infant delivered. The cord was clamped and cut and the infant was handed off to awaiting nurse. The placenta was delivered spontaneously immediately following and was noted to be intact and have a three-vessel cord. The uterus was exteriorized cleared of all clots and debris, and the incision was closed in a double layer closure using #1 Monocryl. The ovaries and fallopian tubes were noted to be within normal limits. The uterus was returned to the maternal abdomen and gutters were cleared of all clots and debris. The peritoneum was closed with 3-0 Monocryl in a running fashion. Gloves were changed prior to fascial closure. Fascia was closed with 0 PDS in a running fashion. Subcutaneous tissue was copiously irrigated and the skin was closed with 3-0 Monocryl in a subcuticular fashion. Mepilex dressing was applied without complication. Patient was taken to recovery in stable condition. It was discussed with the patient that based on the clinical information obtained during this encounter, combined with her history, at this time I would recommend cesareans for future deliveries if further pregnancies are desired. Amniotic Membrane Rupture Type: Spontaneous Amniotic Fluid Description: Clear Placenta Disposition: [facility] Drain: Bhardwaj to straight drain Delayed cord clamping: Yes Antibiotic Given: Ancef 2 grams IV x1, Zithromax 500 mg/5 mL X1 Pt instructed on risks of surgery: Bleeding, Anesthesia Risks, Infection, Need for Future C-Sections, Injury to surrounding structure(s) including bowel and bladder Complications: None - Admit VTE Documentation VTE Present on Admission: No VTE Mechan Device Prophylaxis: SCD's Multi Select Codes - Urinary/Genital Urinary/Genital CPT Codes: 54827 Delivery [facility]
[2020-09-24] MEDS: Sodium Citrate/Citric Acid 30 ML UDC PO (20:11)
--- NOTE | 2020-09-24 20:13 | DCINST_ITS ---
Discharge Diet: No Restrictions Discharge Activity: May Not Drive - for 2 weeks, May not drive while taking narcotic pain medications., May Shower, May Take a Tub Bath - in 7 days May resume sexual activity in: 4-6 weeks Lifting Restrictions: 20 pounds Additional Activity Instructions:: Nothing in the vagina for 4-6 weeks. You may return to work/school in 6 weeks. Call your doctor if your incision/area has: Continuous Slow Oozing, Sudden Increased Bleeding, Increased Pain/ Swelling, Increased Redness, Foul Smelling Discharge Call your doctor if you observe: Fever of 101 or Higher, Using more than one pad per hour - for 2 hours Suture Line Care: Avoid Pulling/Pushing, Avoid Pinching/Bending Cleanse incision/area with: Keep Dressing Clean & Dry Additional Instructions: If you experience any of the following, contact your healthcare provider. * Bleeding that soaks a pad every hour for 2 hours * Fever 100.4 or higher * Unrelieved incision or abdominal pain * Swelling, redness, discharge or bleeding from your incision or episiotomy site * Your incision begins to separate * Problems urinating (including inability to urinate or burning while urinating). * Visual changes * Severe headache * Flu-like symptoms * Pain or redness in one of both of your breasts * Pain, warmth, tenderness or swelling in your legs, especially the calf area * Frequent nausea and vomiting * Symptoms of depression or anxiety If you experience any of the following, call 911 or go to the nearest Emergency Room. * Chest pain * Problems breathing * Seizure activity * Partial or complete paralysis of a body part, slurred speech, weakness or drooping of the face, or a sudden inability to walk or hold your balance Allergies/Adverse Reactions: Allergies citalopram hydrobromide [From Celexa] Allergy (Verified 09/24/20 20:08) Other Medications to take at Discharge certolizumab pegol 200 mg SC Q2W 04/05/20 vitamin #56-iron 35 mg and 5 mg-folic acid 1 mg-dha capsule 1 cap PO DAILY 04/05/20 Follow-Up: Call to make an appointment with your doctor for an incision check in 1-2 weeks. You will also need a 6 week post- follow up appointment. Test results from this visit will be discussed in further detail at your follow- up appointment, if applicable. Please Follow Up With: Ernestine Villa MD - Call to make an appointment for an incision check in 1-2 [phone] When: You will need a post- check in 6 weeks. Primary Care Physician: Care Physician,No Primary [Primary Care Provider] -
[2020-09-24] MEDS: Cefazolin 2 GM in 0.9% Normal Saline 100 ML IV (20:27)
[2020-09-24] MEDS: Oxytocin 30 units/NS 500 ml 30 UNITS/500 ML IV.SOLN 167 UNITS IV (21:45)
[2020-09-25] VITALS (10 sets, daily range): BP systolic 107–125; BP diastolic 59–74; PULSE 61–85; RESP 14–18; TEMP 36.3–36.7; O2SAT 98–100
--- NOTE | 2020-09-25 00:36 | NURSING ---
Pericare done, peripad changed and underpad changed. Shadowing noted and extention of bleeding from previous drainage circled on dressing. Dressing not saturated but moderate amount noted on dressing and under the seam. Binder applied, will continue to monitor hourly with vital signs. pt denies c/o pain, dizziness, SOB, vitals WNL.
[2020-09-25] MEDS: Acetaminophen 500 MG Tablet 1000 MG PO ×4 (02:33→21:48)
[2020-09-25] MEDS: 0.9% Saline Lock 10 ML Syringe IV ×4 (02:33→21:48)
[2020-09-25] MEDS: Ketorolac 30 MG/ML Syringe IV ×4 (02:34→21:47)
--- NOTE | 2020-09-25 03:16 | PN.OBGYN_ITS ---
Patient Problems: Active and Suspected Problems (Last Reviewed 09/23/20 @ 16:06 by Kavya Sal) SROM (spontaneous rupture of membranes) (Acute) Uterine size-date discrepancy in third trimester (Acute) growth US- NL 35 weeks gestation of (Acute) electronic covid test ordered ( scheduled for 09/23/20 at 1655) Anemia affecting (Acute) iron added Conceived by in vitro fertilization (Acute) echo normal 06/11/20; growth q4w History of delivery (Acute) previous cs x 2, plan repeat with SM. Scheduled 10/01/20 @ 7:30 Covid test ordered Supervision of resulting from assisted reproductive technology (Acute) PRR TIFFANIE 10/06/19 [facility] Case, Marla Luke Anxiety and depression (Acute) prozac, counseling and psychiatrist. (Acute) carrier screening cystic fibrosis and SMA negative, nl preimplantation genetics. PRR normal anatomy scan 05/20/20 Subjective: Patient doing well without complaints. Tolerating PO. Ambulating and voiding without difficulty. feeding well. Denies chest pain, shortness of breath, calf pain/swelling, fevers, chills, lightheadedness. - Physical Exam Vitals/I&O's: Vital Signs Temp Pulse Resp BP Pulse Ox 98.0 F 85 18 112/63 100 09/25/20 01:25 09/25/20 01:25 09/25/20 01:25 09/25/20 01:25 09/25/20 01:25 Oxygen Delivery Method Room Air Weight: 160 lb 8 oz Body Mass Index (BMI) 29.3 Intake and Output for Last 24 Hours 09/23/20 09/24/20 09/25/20 23:59 23:59 23:59 Intake Total 1652.5 / 1652.5 487.08 / 487.08 Output Total 300 / 300 Balance 1352.5 / 1352.5 487.08 / 487.08 General: Alert, Oriented x3 Microbiology Past 72 Hours 09/24/20 18:10 Mucosa - Nose SARS-CoV-2 Antigen (Rapid) - Final Laboratory Results 09/24/20 18:26: WBC 12.3 H, RBC 4.21, Hgb 12.8, Hct 37.6, MCV 89.3, MCH 30.4, MCHC 34.0, RDW Std Deviation 40.3, RDW Coeff of Michelle 12.4, Plt Count 231, MPV 12.4 H, Immature Gran % (Auto) 0.500, Neut % (Auto) 74.9 H, Lymph % (Auto) 18.0 L, [place] % (Auto) 5.9, Eos % (Auto) 0.4, Baso % (Auto) 0.3, Absolute Neuts (auto) 9.2 H, Absolute Lymphs (auto) 2.21, Nucleated RBC % 0 09/24/20 18:26: Blood Type A POSITIVE, Antibody Screen NEGATIVE 09/24/20 : COVID-19 (TIFFANY) Pending Current Medications Acetaminophen (Acetaminophen 500 Mg Tablet) 1,000 mg PO Q6H [facility] Last Admin: 09/25/20 02:33 Dose: 1,000 mg Documented by: Bisacodyl (Bisacodyl 10 Mg Suppository) 10 mg RECTAL UD PRN PRN Reason: If no BM Diphenhydramine HCl (Diphenhydramine 25 Mg Capsule) 25 mg PO Q6H PRN PRN PRN Reason: ITCHING Stop: 09/25/20 23:52 Hydrocortisone (Hydrocortisone 2.5% Crm) 1 applic TOPICAL TID PRN PRN; Protocol PRN Reason: Discomfort Lactated Ringer's () 1,000 mls @ 100 mls/hr IV .Q10H [facility] Ketorolac Tromethamine (Ketorolac 30 Mg/Ml Syringe) 30 mg IV Q6H [facility] Stop: 09/25/20 21:01 Last Admin: 09/25/20 02:34 Dose: 30 mg Documented by: Methylergonovine Maleate (Methylergonovine 0.2 Mg/Ml Ampul) 0.2 mg IM X1 PRN PRN Reason: Uterine Atony Nalbuphine HCl (Nalbuphine 10 Mg/Ml Ampul) 5 mg IV Q3H PRN PRN PRN Reason: ITCHING Stop: 09/25/20 23:52 Naloxone HCl (Naloxone 0.4 Mg/Ml Syringe) 0.02 mg IV Q1M PRN PRN Reason: RR <10 and pt unresponsive Naproxen (Naproxen 250 Mg Tablet) 500 mg PO Q8H [facility] Non-Formulary Medication (Certolizumab Pegol [Cimzia]) 200 mg SC QMONTH [facility] Ondansetron HCl (Ondansetron 4 Mg/2 Ml Vial) 4 mg IV Q4H PRN PRN PRN Reason: Nausea Oxycodone HCl (Oxycodone 5 Mg Tablet) 5 - 10 mg PO Q4H PRN PRN PRN Reason: Pain Score 4-10 Multivit/Folic Acid/Iron ( Vits Tablet) 1 tablet PO DAILY [facility] Prochlorperazine Edisylate (Prochlorperazine 10 Mg/2 Ml Vial) 10 mg IV Q6H PRN PRN PRN Reason: NAUSEA Senna/Docusate Sodium (Senna/Docusate Sodium 1 Tablet) 1 - 2 tablet PO DAILY [facility] Simethicone (Simethicone 80 Mg Tablet) 80 mg PO PCHS PRN PRN Reason: Indigestion/stomach pain Sodium Chloride (0.9% Saline Lock 10 Ml Syringe) 5 - 15 ml IV UD PRN PRN Reason: SALINE FLUSH Last Admin: 09/25/20 02:33 Dose: 10 ml Documented by: Medical Necessity - Tobacco Use Smoking Status: Never smoker Assessment/Plan All Active Problems (Last Reviewed 09/23/20 @ 16:06 by Kavya Sal) SROM (spontaneous rupture of membranes) (Acute) Uterine size-date discrepancy in third trimester (Acute) 35 weeks gestation of (Acute) Anemia affecting (Acute) Conceived by in vitro fertilization (Acute) History of delivery (Acute) Supervision of resulting from assisted reproductive technology (Acute) Anxiety and depression (Acute) (Acute) Umbilical hernia (Resolved) s/p LTCS PPD # 1 1. routine post care 2. breast feeding- support given 3. rh positive 4. rubella immune
[2020-09-25 04:46] LABS: Hematocrit 28.8 % (37-47); Hemoglobin 9.9 g/dL (12.0-15.0); Mean Corp Hgb Conc 34.4 g/dL (32-36); Mean Corpuscular Hgb 30.8 pg (27.0-32.0); Mean Corpuscular Volume 89.7 fL (81-99); Mean Platelet Vol. 11.8 fl (6.2-12.0); Platelet Count 164 K/mm3 (150-450); RBC Distribution Width CV 12.4 % (11.6-14.6); RBC Distribution Width SD 40.4 fl (35.1-43.9); Red Blood Count 3.21 M/mm3 (4.2-5.4); White Blood Count 12.8 K/mm3 (4.4-11.0)
[2020-09-25] MEDS: Senna/Docusate Sodium 1 Tablet PO (09:42)
[2020-09-25] MEDS: Prenatal Vits Tablet 1 TABLET PO (16:05)
--- NOTE | 2020-09-25 17:45 | CASEMGMT ---
Social Work Brief Assessment Labor and Delivery Unit Refer documentation below for further details. Date of Referral/Notification: 09/25/20 Time of Referral: 10:39a Referred By: Dr. Gab Seymour Reason for Referral: MOB with history of depression and anxiety Date of Intervention: 09/25/20 Time of Intervention: 17:45 Informant: Medical record and mother of baby (MOB) Assessment: Met with MOB and FOB in room. Introduced role and reason for consult. MOB open to speaking with this worker at this time. MOB openly discussed history of anxiety and depression and states is prescribed Prozac 60mg. MOB reports does well on medication and states ?it has really helped me.? MOB states also follows with counseling and psychiatry at [place] [id number]. MOB reports is and baby girlFlako is having a difficult time with latching. MOB states this is MOB and FOB?s 3rd child (7 y/o daughter, Marla and 3 y/o son, Case.) MOB and FOB deny any issues with substance use. MOB stating FOB to have 2 weeks off work and will have good support from him and family once home. MOB educated on Post- Depression and provided with resources. MOB denies any further needs at this time. Nursing updated on the above. Plan: Home with resources provided No further needs requested or indicated. Georgiana Botello, [employer], [employer]
[2020-09-26 01:52] VITALS: BP 116/67; PULSE 64; RESP 16; TEMP 36.6
[2020-09-26] MEDS: Acetaminophen 500 MG Tablet 1000 MG PO ×2 (04:09→10:02)
[2020-09-26] MEDS: Naproxen 250 MG Tablet 500 MG PO ×2 (04:10→12:46)
[2020-09-26 09:11] VITALS: BP 117/75; PULSE 66; RESP 18; TEMP 36.8; O2SAT 98
[2020-09-26] MEDS: Prenatal Vits Tablet 1 TABLET PO (10:02)
[2020-09-26] MEDS: Senna/Docusate Sodium 1 Tablet PO (10:02)
--- NOTE | 2020-09-26 11:25 | PCM.PN.OB ---
Patient Problems: Active and Suspected Problems (Last Reviewed 09/23/20 @ 16:06 by Kavya Sal) SROM (spontaneous rupture of membranes) (Acute) Uterine size-date discrepancy in third trimester (Acute) growth US- NL 35 weeks gestation of (Acute) electronic covid test ordered ( scheduled for 09/23/20 at 1655) Anemia affecting (Acute) iron added Conceived by in vitro fertilization (Acute) echo normal 06/11/20; growth q4w History of delivery (Acute) previous cs x 2, plan repeat with SM. Scheduled 10/01/20 @ 7:30 Covid test ordered Supervision of resulting from assisted reproductive technology (Acute) PRR TIFFANIE 10/[facility] Case, Marla Luke Anxiety and depression (Acute) prozac, counseling and psychiatrist. (Acute) carrier screening cystic fibrosis and SMA negative, nl preimplantation genetics. PRR normal anatomy scan 05/20/20 Subjective: Patient doing well without complaints. Tolerating PO. Ambulating and voiding without difficulty. feeding well. Denies chest pain, shortness of breath, calf pain/swelling, fevers, chills, lightheadedness. - Physical Exam Vitals/I&O's: Vital Signs Temp Pulse Resp BP Pulse Ox 98.2 F 66 18 117/75 98 09/26/20 09:11 09/26/20 09:11 09/26/20 09:11 09/26/20 09:11 09/26/20 09:11 Oxygen Delivery Method Room Air Weight: 160 lb 8 oz Body Mass Index (BMI) 29.3 Intake and Output for Last 24 Hours 09/24/20 09/25/20 09/26/20 23:59 23:59 23:59 Intake Total 1652.5 / 1652.5 487.08 / 487.08 Output Total 300 / 300 1000 / 1000 Balance 1352.5 / 1352.5 -512.92 / -512.92 General: Alert, Oriented x3 Microbiology Past 72 Hours 09/24/20 18:10 Mucosa - Nose SARS-CoV-2 Antigen (Rapid) - Final Current Medications Acetaminophen (Acetaminophen 500 Mg Tablet) 1,000 mg PO Q6H [facility] Last Admin: 09/26/20 10:02 Dose: 1,000 mg Documented by: Bisacodyl (Bisacodyl 10 Mg Suppository) 10 mg RECTAL UD PRN PRN Reason: If no BM Hydrocortisone (Hydrocortisone 2.5% Crm) 1 applic TOPICAL TID PRN PRN; Protocol PRN Reason: Discomfort Methylergonovine Maleate (Methylergonovine 0.2 Mg/Ml Ampul) 0.2 mg IM X1 PRN PRN Reason: Uterine Atony Naloxone HCl (Naloxone 0.4 Mg/Ml Syringe) 0.02 mg IV Q1M PRN PRN Reason: RR <10 and pt unresponsive Naproxen (Naproxen 250 Mg Tablet) 500 mg PO Q8H [facility] Last Admin: 09/26/20 04:10 Dose: 500 mg Documented by: Non-Formulary Medication (Certolizumab Pegol [Cimzia]) 200 mg SC QMONTH [facility] Ondansetron HCl (Ondansetron 4 Mg/2 Ml Vial) 4 mg IV Q4H PRN PRN PRN Reason: Nausea Oxycodone HCl (Oxycodone 5 Mg Tablet) 5 - 10 mg PO Q4H PRN PRN PRN Reason: Pain Score 4-10 Multivit/Folic Acid/Iron ( Vits Tablet) 1 tablet PO DAILY [facility] Last Admin: 09/26/20 10:02 Dose: 1 tablet Documented by: Prochlorperazine Edisylate (Prochlorperazine 10 Mg/2 Ml Vial) 10 mg IV Q6H PRN PRN PRN Reason: NAUSEA Senna/Docusate Sodium (Senna/Docusate Sodium 1 Tablet) 1 - 2 tablet PO DAILY [facility] Last Admin: 09/26/20 10:02 Dose: 2 tablet Documented by: Simethicone (Simethicone 80 Mg Tablet) 80 mg PO PCHS PRN PRN Reason: Indigestion/stomach pain Sodium Chloride (0.9% Saline Lock 10 Ml Syringe) 5 - 15 ml IV UD PRN PRN Reason: SALINE FLUSH Last Admin: 09/25/20 21:48 Dose: 10 ml Documented by: Medical Necessity - Tobacco Use Smoking Status: Never smoker Assessment/Plan All Active Problems (Last Reviewed 09/23/20 @ 16:06 by Kavya Sal) SROM (spontaneous rupture of membranes) (Acute) Uterine size-date discrepancy in third trimester (Acute) 35 weeks gestation of (Acute) Anemia affecting (Acute) Conceived by in vitro fertilization (Acute) History of delivery (Acute) Supervision of resulting from assisted reproductive technology (Acute) Anxiety and depression (Acute) (Acute) Umbilical hernia (Resolved) s/p LTCS PPD # 2 1. routine post care 2. breast feeding- support given 3. rh positive 4. rubella immune
[2020-09-26] MEDS: FLUoxetine 20 MG Capsule 60 MG PO (12:11)
[2020-09-26 12:23] VITALS: BP 110/59; PULSE 70; RESP 16; TEMP 36.8; O2SAT 96
== END 2020-09-26 13:00 | disposition home or self-care (01) | DRG 788 ==
LOC: WP 17:56
PROVIDERS: Admitting Provider Obstetrics & Gynecology; Referring Provider Nurse Practitioner Women's Health; Visit Provider Obstetrics & Gynecology
DX: O99.02 Anemia complicating childbirth (principal); D64.9 Anemia, unspecified; Z3A.38 38 weeks gestation of pregnancy; Z37.0 Single live birth
CPT/HCPCS: 59025; 59050; 85025; 85027; 86850; 86900; 86901; 87426; 87635; 99218; C9803; J7120; U0005; A4216; G0378; J2405; U0003

== ENCOUNTER → 2020-10-25 14:19 | Outpatient (CLI) | payer OTHER, SELFPAY ==
[2020-10-14 13:04] VITALS: BMI 27.5
[2020-10-25 18:28] LABS: Absolute Lymphocyte Count 2.43 X10^3/uL (0.83-4.51); Absolute Neutrophil Count 4.3 X10^3/uL (2.0-7.7); Basophil# 0.08 X10^3/uL; Basophil% 1.1 % (0-1); Eosinophil# 0.17 X10^3/uL; Eosinophils% 2.3 % (0-5); Hematocrit 35.1 % (37-47); Hemoglobin 11.6 g/dL (12.0-15.0); Lymphocyte # 2.43 X10^3/ul (4.0); Lymphocyte % 32.4 % (19-41); Mean Corpuscular Hgb 29.9 pg (27.0-32.0); Mean Corpuscular Volume 90.5 fL (81-99); Monocyte# 0.56 X10^3/uL; Monocyte% 7.5 % (0-10); NRBC Flagged by Analyzer 0 % (0-5); Neutrophil # 4.25 X10^3/uL (2.7-7.7); Neutrophil % 56.4 % (47-70); Platelet Count 232 K/mm3 (150-450); RBC Distribution Width CV 11.5 % (11.6-14.6); RBC Distribution Width SD 38.2 fl (35.1-43.9); Red Blood Count 3.88 M/mm3 (4.2-5.4); White Blood Count 7.5 K/mm3 (4.4-11.0)
[2020-10-25 18:44] LABS: ALB/GLOB Ratio 1.1 RATIO (0.9-2.4); AST(SGOT) 21 U/L (15-37); Alanine Aminotransfer ALT/SGPT 40 U/L (13-56); Albumin, Serum 3.9 g/dL (3.2-5.0); Alkaline Phosphatase 83 U/L (45-117); Anion Gap 5 (5-15); BUN 16 mg/dL (7-18); BUN/Creat Ratio 17.4 RATIO (10-20); Calcium,Total 9.3 mg/dL (8.5-10.1); Chloride 103 mmol/L (98-107); Creatinine, Serum 0.92 mg/dL (0.55-1.02); EST Glomerular Filtration Rate 73 mL/min (>60); Est Glom Filt Rate - Afr Amer 88 mL/min (>60); Globulin 3.4 g/dL (2.2-4.2); Glucose 86 mg/dL (74-106); Potassium 3.6 mmol/L (3.5-5.1); Protein, Total 7.3 g/dL (6.4-8.2); Sodium Level 138 mmol/L (136-145)
== END ==
PROVIDERS: Referring Provider Internal Medicine Rheumatology; Visit Provider Internal Medicine Rheumatology
DX: L40.59 Other psoriatic arthropathy (principal); L40.8 Other psoriasis; M21.40 Flat foot [pes planus] (acquired), unspecified foot; F41.9 Anxiety disorder, unspecified; F32.89 Other specified depressive episodes; Z79.899 Other long term (current) drug therapy
CPT/HCPCS: 36415; 80053; 85025

== ENCOUNTER → 2020-11-01 | Outpatient (CLI) | payer OTHER, SELFPAY ==
[2020-11-01 11:14] VITALS: BMI 26.8
[2020-11-04 19:54] LABS: HPV APTIMA, High Risk Negative (Negative)
== END | disposition home or self-care (01) ==
LOC: LABSPEC 16:26
PROVIDERS: Referring Provider Obstetrics & Gynecology; Visit Provider Obstetrics & Gynecology
DX: Z12.4 Encounter for screening for malignant neoplasm of cervix (principal)
CPT/HCPCS: 87624; 88175; G0145

== ENCOUNTER 2020-11-26 05:42 | Emergency (ER) | payer OTHER, SELFPAY ==
[2020-11-01 11:14] VITALS: BMI 26.8
[2020-11-26 05:43] VITALS: BP 134/85; PULSE 69; RESP 18; TEMP 36.2; O2SAT 100; BMI 26.9
--- NOTE | 2020-11-26 05:53 | ED.DCSUM_ITS ---
History of Present Illness Chief Complaint: Abd Pain Informant: Patient Onset: Hours Context: Sudden Onset Timing: Continuous Quality: Dull ache Location: Left side of the abdomen/flank Current Severity: Moderate Maximum Severity: Severe Worsened by: Possibly movement Relieved by: Nothing Associated Symptoms: Nausea and vomited once Narrative: Is a 35-year-old female who presents from home because of abrupt left-sided abdominal pain that is located in the left upper quadrant and left flank area that awoke her from sleep at 0400. She reports episode of vomiting x1 at 0500. States the color was brown. No coffee grounds or blood. No black or maroon- colored stool. No history of peptic ulcer disease, esophagitis or gastritis. Apparently, patient had bran flakes with raisin and muffin at 0300. she denied fever, chills or night sweats. She denied upper respiratory symptoms. She denied pleuritic component. There is no history of diverticulosis. There is no history of renal ureterolithiasis. She is status post 9.5 weeks ago. This is her third . She had no complications other than or first and second . She denies vaginal bleeding. Reports no problems with or delivery. Prior similar symptoms: No Recent Illness/Hospitalization: No - Past Medical History (1) Anxiety and depression Status: Acute Comment: prozac, counseling and psychiatrist. Past Medical History - Allergies and Home Meds Allergies/Adverse Reactions: Allergies citalopram hydrobromide [From Celexa] Allergy (Verified 11/26/20 05:47) Other Primary Care Physician: Care Physician,No Primary [Primary Care Provider] - Prior records reviewed: Yes Surgical History: - - x3 Lives: Spouse/ Significant Other, With Family Smoking Status: Never smoker Alcohol: Rare Drugs: None Review of Systems General: Denies: Chills, Fever, Malaise, Subjective Eyes: Denies: Visual changes - bilaterally, Blurred Vision - bilaterally ENT: Denies: Rhinorrhea, Sore throat Cardiovascular: Denies: Chest pain, Palpitations Respiratory: Denies: Dyspnea, Cough, Dyspnea on exertion Gastrointestinal: Reports: Abdominal pain, Nausea, Vomiting. Denies: Diarrhea, Constipation, Melena, Hematochezia Genitourinary: Denies: Dysuria, Hematuria, Frequency Musculoskeletal: Reports: Back pain - Left flank area. Denies: Myalgias, Arthralgias, Neck pain, Swelling, Extremity Pain, -, - Skin: Denies: Rash, Wounds Neurological: Denies: Headache, Weakness Endocrine: Denies: Polyuria, Polydipsia Hematologic: Denies: Easy bruising Physical Exam Vital Signs/Narrative: Vital Signs Temp Pulse Resp BP Pulse Ox 11/26/20 05:43 97.2 F L 69 18 134/85 H 100 Inital Vital Signs reviewed: Yes General: Well nourished, Well developed, Acute Distress Head: Normocephalic, Atraumatic. Negative for: Trauma, Tenderness Eyes: Perrl, EOMI. Negative for: Pale conjunctiva, Scleral icterus ENT: No rhinorrhea Neck: Supple, Nontender, No lymphadenopathy, No JVD Cardiovascular: Regular rate, Regular rhythm, No murmurs, Normal S1, Normal S2 Respiratory: No distress, CTA bilaterally, Chest nontender Abdomen: Soft, Nondistended, Normal bowel sounds, No masses, Tender. Negative for: Guarding, Rebound tenderness, Hepatomegaly, Splenomegaly, Mass, Pulsatile mass Back: Nontender, Normal Inspection. Negative for: CVA tenderness Extremities: Nontender, No edema Skin: Normal color, No rash, No Trauma. Negative for: Cyanosis, Diaphoresis, Jaundice Neurological: Alert, Oriented x3, Cranial nerves II-XII grossly intact, Normal Strength, Normal Sensation, Normal Gait Psychological: Normal affect Diagnostic/Tx/Re-eval Impressions Abdomen/Pelvis CT 11/26/20 06:21 IMPRESSION: 5 mm stone at the left ureterovesicular junction with moderate left hydroureteronephrosis. Electronically Signed: Primo Vázquez MD at 6:48 EDT Tel , Service support , 11/26/20 06:21 Abdomen/Pelvis without Cont [CT] Stat Laboratory Results 11/26/20 11/26/20 05:47 05:47 WBC 9.1 RBC 4.32 Hgb 12.6 Hct 37.9 MCV 87.7 MCH 29.2 MCHC 33.2 RDW Std Deviation 36.0 RDW Coeff of Michelle 11.2 L Plt Count 320 MPV 11.4 Immature Gran % (Auto) 0.300 Neut % (Auto) 56.2 Lymph % (Auto) 34.7 [place] % (Auto) 6.7 Eos % (Auto) 1.3 Baso % (Auto) 0.8 Absolute Neuts (auto) 5.1 Absolute Lymphs (auto) 3.15 Nucleated RBC % 0 Sodium 137 Potassium 3.6 Chloride 102 Carbon Dioxide 27.0 Anion Gap 8 BUN 17 Creatinine 1.09 H Estim Creat Clear Calc 50.76 Est GFR (MDRD) Af Amer 73 Est GFR (MDRD) Non-Af 60 BUN/Creatinine Ratio 15.6 Glucose 108 H Calcium 9.4 Total Bilirubin 0.20 AST 21 ALT 45 Alkaline Phosphatase 76 Total Protein 7.7 Albumin 4.1 Globulin 3.6 Albumin/Globulin Ratio 1.1 Disposition to be made by Dr. Maxwell Kuhn. Patient has a 5 mm left ureteral stone at the UVJ causing moderate hydronephrosis and hydroureter. Pain is under control. If there is evidence infection will need to contact urology. Disposition pending urinalysis. If no evidence infection, patient can go home. If there is evidence of infection, urology will be notified. - Medical Decision Making Presents with abrupt onset of left upper quadrant abdominal pain. She does have pain to deep palpation over the left kidney. There is no CVA tenderness however. This may represent ureterolithiasis, pyelonephritis, diverticulitis, inflammatory bowel disorder or possible gynecologic pathology. IV was established. She was medicated with Zofran, Toradol and morphine for her nausea vomiting and pain. UA was obtained to assess for infection and blood. CBC to assess H&H and white count. BMP to assess renal function. At 9.5 weeks from delivery/ she would no longer be hypercoagulable. She is PERC negative. Blood pressures approximately 10 to 15 mmHg higher than what was documented during . The diastolic is not elevated by any significance. Doubt preeclampsia. CT of the abdomen pelvis without contrast early 80s nonobstructing bilateral renal calculi. There appears to be a distal left ureteral stone with hydronephrosis. Awaiting formal read by radiologist. ED Disposition - Plan for ED Patient: Diagnosis: Hydronephrosis concurrent with and due to calculi of kidney and ureter, Kidney stone on right side Instructions: ED Kidney Stone w/ Colic Prescriptions: Naproxen [Naprosyn] 500 mg PO BID #14 tablet Transmission Status: Pending to [facility] Oxycodone HCl/Acetaminophen [Percocet 5/325] 1 tablet PO Q6H PRN PRN 5 Days #20 tablet PRN Reason: Flank pain Transmission Status: Received by [facility] Referrals: Care Physician,No Primary [Primary Care Provider] - Halley Pelletier MD [STAFF PHYSICIAN] - 5-7 Days
[2020-11-26] MEDS: Ondansetron 4 MG/2 ML Vial IV (05:56)
[2020-11-26] MEDS: Ketorolac 15 MG/ML Vial IV (05:56)
[2020-11-26] MEDS: Morphine 4 MG/ML Syringe IV (05:56)
[2020-11-26] MEDS: 0.9% Normal Saline 1,000 ML 250 ML IV (05:59)
[2020-11-26 06:00] LABS: Absolute Lymphocyte Count 3.15 X10^3/uL (0.83-4.51); Absolute Neutrophil Count 5.1 X10^3/uL (2.0-7.7); Basophil# 0.07 X10^3/uL; Basophil% 0.8 % (0-1); Eosinophil# 0.12 X10^3/uL; Eosinophils% 1.3 % (0-5); Hematocrit 37.9 % (37-47); Hemoglobin 12.6 g/dL (12.0-15.0); Lymphocyte # 3.15 X10^3/ul (4.0); Lymphocyte % 34.7 % (19-41); Mean Corp Hgb Conc 33.2 g/dL (32-36); Mean Corpuscular Hgb 29.2 pg (27.0-32.0); Mean Corpuscular Volume 87.7 fL (81-99); Mean Platelet Vol. 11.4 fl (6.2-12.0); Monocyte# 0.61 X10^3/uL; Monocyte% 6.7 % (0-10); NRBC Flagged by Analyzer 0 % (0-5); Neutrophil % 56.2 % (47-70); Platelet Count 320 K/mm3 (150-450); RBC Distribution Width CV 11.2 % (11.6-14.6); Red Blood Count 4.32 M/mm3 (4.2-5.4); White Blood Count 9.1 K/mm3 (4.4-11.0)
[2020-11-26 06:19] LABS: ALB/GLOB Ratio 1.1 RATIO (0.9-2.4); AST(SGOT) 21 U/L (15-37); Alanine Aminotransfer ALT/SGPT 45 U/L (13-56); Albumin, Serum 4.1 g/dL (3.2-5.0); Alkaline Phosphatase 76 U/L (45-117); Anion Gap 8 (5-15); BUN 17 mg/dL (7-18); BUN/Creat Ratio 15.6 RATIO (10-20); Calcium,Total 9.4 mg/dL (8.5-10.1); Chloride 102 mmol/L (98-107); Creatinine, Serum 1.09 mg/dL (0.55-1.02); EST Glomerular Filtration Rate 60 mL/min (>60); Est Glom Filt Rate - Afr Amer 73 mL/min (>60); Estimated Creatinine Clearance 50.76 ml/min; Globulin 3.6 g/dL (2.2-4.2); Glucose 108 mg/dL (74-106); Potassium 3.6 mmol/L (3.5-5.1); Protein, Total 7.7 g/dL (6.4-8.2); Sodium Level 137 mmol/L (136-145)
--- NOTE | 2020-11-26 06:21 | CT_ITS ---
STUDY: CT ABDOMEN AND PELVIS WITHOUT CONTRAST REASON FOR EXAM: Female, 35 years old. Left flank pain RADIATION DOSAGE (If Supplied By Facility): CTDIvol = ( 6.74 ) mGy, DLP = ( 334.97 ) mGycm TECHNIQUE: Transaxial images were obtained from the dome of the diaphragm to the symphysis pubis without oral contrast, and without intravenous contrast. Sagittal and coronal images were reconstructed. Individualized dose optimization techniques were used for this CT. COMPARISON: None. FINDINGS: Evaluation of the abdominal viscera is limited in the absence of intravenous contrast. The visualized lung bases are clear. The visualized portions of the heart and pericardium are within normal limits. There are no calcified gallstones present. The liver demonstrates an unremarkable unenhanced appearance. The spleen is normal in size. The pancreas demonstrates an unremarkable unenhanced appearance. The adrenal glands are within normal limits. There is a 4 mm stone at the left ureterovesicular junction with moderate left hydroureteronephrosis. There are bilateral subcentimeter nonobstructing renal collecting system stones, measuring up to 4 mm. There are no right ureteral stones. There is no right hydronephrosis. Normal visualized stomach. There is no bowel obstruction or inflammation. The appendix is not visualized, but there are no findings to suggest acute appendicitis. The aorta is normal in caliber. There is no abdominal or pelvic free air, free fluid, fluid collection or lymphadenopathy. There are no destructive osseous lesions. CT/Abdomen/Pelvis without Cont IMPRESSION: 5 mm stone at the left ureterovesicular junction with moderate left hydroureteronephrosis. Electronically Signed: Primo Vázquez MD at 6:48 EDT Tel , Service support ,
[2020-11-26 07:13] LABS: White Blood Cells 0 SEEN /hpf (0-5)
[2020-11-26 07:15] LABS: Color, Urine Yellow (Yellow); Glucose, Dipstick Normal (Normal); Ketone-Dipstick Negative (Negative); Leukocyte Esterase-Dipstick 25 /ul (Negative); Nitrite-Dipstick Negative (Negative); Occult Blood-Urine 250 /ul (Negative); Protein-Dipstick 15 mg/dl (Negative); Specific Gravity, Urine 1.025 (1.002-1.030); Urine Bilirubin Dipstick Negative (Negative); Urine Clarity Sl. Cloudy (Clear); Urine Urobilinogen Normal (Normal)
[2020-11-26 07:24] LABS: Bacteria RARE /hpf (None Seen); Mucous, Urine 2+ /hpf (<or=2+); Red Blood Cells-Urine 5-10 SEEN /hpf (0-5); Squamous Epithelial Cells - UA 0-5 SEEN /hpf (5-10)
[2020-11-26 08:08] VITALS: BP 118/58; PULSE 72; RESP 16; O2SAT 99
== END 2020-11-26 08:21 | disposition home or self-care (01) ==
PROVIDERS: Emergency Provider Emergency Medicine
DX: N13.2 Hydronephrosis with renal and ureteral calculous obstruction (principal); F41.9 Anxiety disorder, unspecified; F32.9 Major depressive disorder, single episode, unspecified; Z79.899 Other long term (current) drug therapy
CPT/HCPCS: 74176; 80053; 81001; 85025; 96361; 96374; 96375; 99284; J7030; A4216; J2405

== ENCOUNTER → 2021-01-14 17:46 | Outpatient (CLI) | payer OTHER, SELFPAY ==
--- NOTE | 2021-01-14 17:48 | CT_ITS ---
STUDY: CT ABDOMEN AND PELVIS WITHOUT CONTRAST REASON FOR EXAM: Female, 35 years old. Renal ureteral stone low back pain RADIATION DOSAGE (If Supplied By Facility): CTDIvol = ( 6.44 ) mGy, DLP = ( 328.39 ) mGycm TECHNIQUE: Transaxial images were obtained from the dome of the diaphragm to the symphysis pubis without oral contrast, and without intravenous contrast. Sagittal and coronal images were reconstructed. Individualized dose optimization techniques were used for this CT. COMPARISON: 26 November 2020 FINDINGS: The visualized lung bases are unremarkable. The visualized portions of the heart are within normal limits. Normal liver. Normal gallbladder and extrahepatic biliary system. Normal spleen. Normal pancreas. Normal bilateral adrenal glands. Left ureterovesical junction stone has passed with resolution of hydronephrosis. There are stable bilateral small, 1 -- 4 mm renal calculi, one on the right and 5 on the left. Largest stone is in the left kidney at 4 mm in the interpolar calyx. Normal visualized stomach. Normal small intestine. Normal colon. The appendix is visualized and appears normal. Normal abdominal aorta. Normal inferior vena cava. Normal retroperitoneum. Normal urinary bladder. Normal abdominal wall. Normal osseous structures. CT/Abdomen/Pelvis without Cont IMPRESSION: 1. No ureteral calculi. No hydronephrosis. 2. Bilateral small, 1 -- 4 mm calyceal nonobstructing stones. Electronically Signed: Laura Arroyo MD at 18:31 EDT Tel , Service support ,
== END ==
PROVIDERS: Referring Provider Urology; Visit Provider Urology
DX: N20.2 Calculus of kidney with calculus of ureter (principal); M54.5 Low back pain
CPT/HCPCS: 74176

== ENCOUNTER → 2021-06-13 16:24 | Outpatient (CLI) | payer OTHER, SELFPAY ==
[2021-06-20 17:07] LABS: QNTFERON TB Mitogen Value > 10.00 IU/mL (.); QNTFERON TB Nil Value 0.04 IU/mL (.); QNTFERON TB1+ Ag Value 0.04 IU/mL (.); QNTFERON TB2+ Ag Value 0.04 IU/mL (.)
[2021-06-20 19:40] LABS: QNTIFERON TB Positive Criteria Negative (Negative)
== END ==
PROVIDERS: Referring Provider Dermatology Pediatric Dermatology; Visit Provider Dermatology Pediatric Dermatology
DX: L40.0 Psoriasis vulgaris (principal); Z79.899 Other long term (current) drug therapy
CPT/HCPCS: 36415; 86480

== ENCOUNTER → 2021-07-05 13:51 | Outpatient (CLI) | payer OTHER, SELFPAY ==
--- NOTE | 2021-07-05 13:56 | BI_ITS ---
MAMMOGRAPHY - BILATERAL DIAGNOSTIC REASON FOR EXAM: Female, 35 years old. Right breast lump. PERTINENT HISTORY: Grandmother with breast cancer. TECHNIQUE: Digital bilateral breast marlene (3D mammographic acquisition) in the CC and MLO projections. 2-D mediolateral oblique (MLO) and craniocaudad (CC) views of both breasts were obtained. CAD: Full Field Digital Mammography with Computer Added Detection was performed. COMPARISON: None. Baseline examination. FINDINGS: Breast Composition: The breasts are extremely dense, which lowers the sensitivity of mammography. There are no dominant masses or suspicious calcifications. No other significant abnormalities are identified. BI/DIAG MAMM W/CAD, BILAT IMPRESSION: Negative diagnostic mammogram. With the patient''s history of a palpable lump in the retroareolar region of the right breast, correlation with ultrasound is recommended. ASSESSMENT CATEGORY: BIRADS Category 0: Incomplete. Need additional imaging evaluation. A letter regarding these results will be sent to the patient by the facility within 30 days. Approximately 10% of breast cancers are not detected by mammography. A normal mammogram should not delay biopsy of a clinically suspicious abnormality. Electronically Signed: Yariel Leavitt MD at 15:09 EST , Service support ,
--- NOTE | 2021-07-05 14:28 | US_ITS ---
STUDY: ULTRASOUND BREAST - RIGHT REASON FOR EXAM: Female, 35 years old. Palpable lump in the right breast. TECHNIQUE: Axial and longitudinal images of the RIGHT breast were performed with a high resolution ultrasound transducer. # OF IMAGES: 23 COMPARISON: Comparison is made with prior mammogram done earlier today. FINDINGS: RIGHT Breast: The palpable abnormality corresponds to a 7 mm x 7 mm x 2 mm cyst. This is just deep to the subcutaneous tissue. This may represent a sebaceous cyst. Clinical correlation is recommended. US/Breast Limited Unilateral IMPRESSION: The palpable abnormality corresponds to a 7 mm x 7 mm x 2 mm cystic nodule deep to the subcutaneous tissue. This may represent a sebaceous cyst. Clinical correlation is recommended. ASSESSMENT CATEGORY: BIRADS Category 2: Benign. A letter regarding these results will be sent to the patient by the facility within 30 days. Electronically Signed: Yariel Leavitt MD at 15:02 EST , Service support ,
== END ==
PROVIDERS: Referring Provider Nurse Practitioner Women's Health; Visit Provider Nurse Practitioner Women's Health
DX: N63.10 Unspecified lump in the right breast, unspecified quadrant (principal)
CPT/HCPCS: 76642; 77062; 77066; G0279

== ENCOUNTER 2021-08-18 11:02 | Day surgery (SDC) | payer OTHER, SELFPAY ==
[2021-08-18 11:44] VITALS: BP 107/61; PULSE 63; RESP 18; TEMP 36.5; O2SAT 100; BMI 26.5
--- NOTE | 2021-08-18 11:51 | HP.PCM_ITS ---
History and Physical Date of Admission: 08/18/21 Date of Service: 08/16/21 MR#:[id number]:[id number]: JAMILAH TEE [facility] #:[id number]:[id number] Provider:Rusty Beck/Sex: 36/F 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 Radha Hanson MD) Infertility Psychiatric disorder Thyroid disease Surgical History Carpal tunnel syndrome delivery delivered History of umbilical hernia Family History Grandmother Breast cancer Social History Smoking Status: Never smoker second hand exposure: No alcohol intake: current details: social use/pre substance use type: does not use caffeine: Yes what type of physical activity do you participate in: running frequency: 3-4 times per week duration: 15-30 minutes/day seatbelt use: always do you feel safe at home: Yes additional social history: Spouse Luke HPI HPI HPI: JAMILAH TEE, is a 36 F who presents to the office today for right breast cyst at 9:00. Patient states she noticed this in May did recently have a mammogram as well as an ultrasound which showed 7 mm x 7 mm likely sebaceous cyst at 9:00 2 cm from the nipple-BIRADS 2. Patient states it has gotten a little bit larger can occasionally be painful on palpation, denies any infection. ROS General General: No weight change, appetite, fatigue, colon cancer or breast cancer HEENT HEENT: No difficulty swallowing, eye injury, eye surgery, swollen glands or hoarseness Endo Endocrine: No thyroid disease, diabetes mellitus, thyroid cancer, Hair loss, heat intolerance or cold intolerance Skin Skin: No rash or changing moles Breast Breast: No left breast lump, right breast lump, nipple discharge, breast pain, abnormal mammogram, abnormal US or breast enlargement Musc Musculoskeletal: No back problems, arthritis, rheumatoid arthritis, gout or joint pain Cardio Cardiovascular: No murmur, pacemaker, heart disease, atrial fibrillation, high blood pressure, heart attack, heart stent, palpitations, shortness of breat with exertion or chest pain Psych Psychiatric: Yes depression and anxiety; No hearing voices Resp Respiratory: No shortness of breath, No sleep apnea, No cough, No COPD, No asthma, No emphysema and No wheezing Gastro Gastrointestinal: No abdominal pain, No nausea or vomiting, No diarrhea, No constipation, No blood in stool, No acid reflux, No hemorrhoids, No ulcers, No gallbladder problem and No black,tarry stools Yasir Hematologic: No blood thinners, No blood disorders, No bleeding, No anemia and No blood clots Neuro Neurologic: No abnormal speech and No confusion Exam Const General: cooperative, healthy appearing, comfortable and no acute distress Neck Neck: normal visual inspection Chest Other: Right breast: Purplish discoloration at 9:00 (thin skin appearance) adjacent to the areolar border about a centimeter and half by centimeter which also corresponds with underlying nodule?bedside ultrasound consistent with likely sebaceous cyst just underneath the skin., nontender, other masses on exam. No nipple discharge Left breast: No mass on exam, no nipple discharge, no change in overlying skin. Bilaterally no supraclavicular or axillary adenopathy Resp Effort & Inspection: normal respiratory effort Cardio Rate: regular rate GI Inspection: non-distended Palpation: soft Skin General: no rashes or lesions noted Neuro General: patient oriented x3 Psych Affect: normal affect COVID (Procedure Consent) Procedure Criteria Procedure Criteria: Yes Elective The surgeon/proceduralist and patient have discussed in detail the risk of exposure to and/or potential harm posed by the COVID-19 virus with having a surgery/procedure at this time versus the risk of delaying the surgery/procedure. It is not possible to know either the risk of delaying the surgery or procedure or chance of getting an infection with perfect accuracy, but a joint decision was made between the patient and the surgeon/proceduralist to proceed at this time with the scheduled surgery/procedure as indicated on the consent form. Assessment and Plan Assessment and Plan (1) Cyst of right breast: Status: Acute Plan - Dr. Radha Hanson MD: We will plan for excision of right breast cyst in the OR as the location is just on the areolar border. Discussed with patient the procedure including risks not limited to bleeding, infection, cosmesis as that skin is quite thin where the cyst is unsure if would be able to use the areolar border which would be more ideal incision versus a radial incision. Patient no further question this time. Radha Hanson M.D. Pager: [phone] [facility] [address] [place] [address] [place] [address] Office: [phone] Coding Level of Care Code Off vis,new,level 3 Diagnoses Cyst of right breast N60.01 08/16/21 1125<Electronically signed by Radha Hanson MD>Date Radha Hanson MD
[2021-08-18 11:54] LABS: Internal QC Validated? YES +Cl - CLEAR BKGD; Pregnancy, Urine Negative Negative
[2021-08-18] MEDS: Lactated Ringers 1,000 ML 15 ML IV (11:56)
[2021-08-18] MEDS: Bupivacaine Mpf 0.5% 30 ML VIAL (12:20)
--- NOTE | 2021-08-18 12:27 | PCM.OPRPT ---
Report of Operation Date of Procedure: 08/18/21 Pre-Operative Diagnosis: Right breast sebaceous cyst Post-Operative Diagnosis: Same Surgery/Procedure Performed:: Excision of right breast sebaceous cyst Surgeon: Radha Hanson mortgage specialist: Judit Osman Type of Anesthesia: General/Supplemental Anesthesiologist: Calos López Special Medications: Ancef 2 g IV x1 Specimen's removed: Right breast sebaceous cyst Estimated Blood Loss (mL): Minimal Description of Procedure: Patient was brought into the operating placement on operating table. Timeout was completed verifying correct patient, procedure, site, positioning, special equipment prior to beginning procedure. General anesthesia was induced. Patient's right breast was prepped and usual sterile fashion. Curvilinear incision at the areolar border at 9:00 was made with 15 blade scalpel. The sebaceous cyst was dissected out using iris scissors. Hemostasis achieved with electrocautery. Sebaceous cyst was sent to pathology. Incision was closed with 4-0 Monocryl and Dermabond. Patient was extubated Patient tolerated procedure well. And taken to the postanesthesia care unit. Complications none
--- NOTE | 2021-08-18 12:29 | DCINST_ITS ---
Discharge Instructions Procedure Breast Surgery Diet Discharge Diet: No restrictions Activity Discharge Activity: May Not Drive (for 2-3 days or while taking narcotic pain meds.) May shower in (days): 1 Lifting Restrictions: 15 pounds for 1 week on right Dressing / Incision Call your doctor if your incision/area has: Continuous Slow Oozing, Sudden Incre ased Bleeding, Increased Pain/ Swelling and Increased Redness Call your doctor if you observe: Fever of 101 or Higher Suture Line Care: Avoid Pulling/Pushing and Avoid Pinching/Bending Additional Dressing/Incision Instructions:: Wear supportive bra for the first couple days and nights. Okay to ice as needed-- follow-up in 2 weeks. Follow Up Care Please Follow Up With: Radha Hanson MD When: Please call [phone] for an appointment to be seen in 2 week. Test Results: Test results from this visit will be discussed in further detail at your follow-up appointment, if applicable. Discharge Plan Admission Attending Provider: Radha Hanson Primary Care Provider: Care Physician,Rosalina Primary Discharge Orders/Prescriptions Prescriptions: New oxycodone-acetaminophen 5-325 mg tablet 1 tab PO Q6H PRN (Reason: Pain) 3 Days Qty: 5 RF: 0 Continued Cimzia 400 mg/2 mL (200 mg/mL x 2) syringe kit 200 mg SC .[id number] RF: 0 fluoxetine [Prozac] 40 mg capsule 60 mg PO DAILY RF: 0 Referrals / Follow Up: Care Physician,No Primary [Primary Care Provider] - Disposition Disposition (needs filled in before D/C Order can be placed): Home, Self Care
[2021-08-18 12:40] VITALS: BP 107/61; BP 125/81; PULSE 74; RESP 16; TEMP 35.9; O2SAT 100
[2021-08-18 12:45] VITALS: BP 107/61; BP 115/83; RESP 68; O2SAT 16
--- NOTE | 2021-08-18 12:45 | CYST_PTH ---
PATIENT: JAMILAH TEE [place] [facility] [place][id number] AGE/SX: 36/F ROOM: RE08/18/[address]: Dr. Radha Hanson MD : 1985 BED: DIS: 08/18/2021 SPEC #: [id number] RECD: 08/22/21 09:29 STATUS: KATEILN ALEXUS #: [id number] JANIYA: 08/18/21 12:[address]: Radha Hanson DEPT: SURGICAL PATHOLOGY RECD BY: Jo Ann Brewster ENTERED: 08/22/21 09:29 SP TYPE: Cyst OTHR DR: No Primary Care Phys Tissues: Breast, NOS Procedures: Surgery Specimen Level IV HEADER OPERATION: Excision cyst breast PRE-OP DIAGNOSIS: Cyst of right breast TISSUE SUBMITTED: Right breast sebaceous cyst MICROSCOPIC DIAGNOSIS Cyst right breast, excisional biopsy: Fibrosis, chronic inflammation and early granulation. No evidence of malignancy. See comment. AM:mike 08/23/2021 COMMENT An epithelial cyst is not present in the biopsy. Clinical correlation is suggested. MICROSCOPIC DESCRIPTION Slides are reviewed. GROSS DESCRIPTION Received in fixative is one container labeled with the patient's name and designated right breast sebaceous cyst. The specimen consists of a piece of saenz soft tissue measuring 1.5 x 1 x 0.5 cm. The specimen is inked, bisected and submitted entirely in one cassette. / SJ:rg 08/22/21 TC:3 CPT: 29526
[2021-08-18 13:00] VITALS: BP 107/61; BP 117/73; PULSE 59; RESP 16; O2SAT 100
[2021-08-18 13:15] VITALS: BP 107/61; BP 118/74; PULSE 60; RESP 16; TEMP 36.1; O2SAT 100
[2021-08-18 13:20] VITALS: BP 107/61; BP 118/70; PULSE 72; RESP 16; O2SAT 97
== END 2021-08-18 14:05 | disposition home or self-care (01) ==
LOC: SDC 11:03 → AC 11:04
PROVIDERS: Anesthesiology; Referring Provider Surgery; Visit Provider Surgery
PROC: (CPT 19301; principal; 2021-08-18 12:35)
DX: N60.31 Fibrosclerosis of right breast (principal); N60.01 Solitary cyst of right breast; L40.50 Arthropathic psoriasis, unspecified; F32.A Depression, unspecified; F41.9 Anxiety disorder, unspecified; Z79.899 Other long term (current) drug therapy
CPT/HCPCS: 00400; 19120; 81025; 88304; 88305; J7120; J2405

== ENCOUNTER → 2022-05-29 | Outpatient (CLI) | payer OTHER, SELFPAY ==
[2022-05-31 18:07] LABS: QNTFERON TB Mitogen Value > 10.00 IU/mL (.); QNTFERON TB Nil Value 0.05 IU/mL (.); QNTFERON TB1+ Ag Value 0.06 IU/mL (.); QNTFERON TB2+ Ag Value 0.07 IU/mL (.)
[2022-06-01 17:00] LABS: QNTIFERON TB Positive Criteria Negative (Negative)
== END | disposition home or self-care (01) ==
LOC: MTLAB 16:59
PROVIDERS: Referring Provider Dermatology Pediatric Dermatology; Visit Provider Dermatology Pediatric Dermatology
DX: L40.0 Psoriasis vulgaris (principal); L40.59 Other psoriatic arthropathy; Z79.899 Other long term (current) drug therapy
CPT/HCPCS: 36415; 86480

== ENCOUNTER → 2023-03-12 | Outpatient (CLI) | payer OTHER, SELFPAY ==
--- NOTE | 2023-03-12 12:47 | BI_ITS ---
MAMMOGRAPHY - BILATERAL SCREENING REASON FOR EXAM: Female, 37 years old. Routine annual screening examination. PERTINENT HISTORY: Grandmother with breast cancer. TECHNIQUE: Digital bilateral breast wilma (3D mammographic acquisition) in the CC and MLO projections. 2-D mediolateral oblique (MLO) and craniocaudad (CC) views of both breasts were obtained. CAD: Full Field Digital Mammography with Computer Added Detection was performed. COMPARISON: Comparison is made with prior study dated July 05, 2021. FINDINGS: Breast Composition: The breasts are extremely dense, which lowers the sensitivity of mammography. There are no dominant masses or suspicious calcifications. Stable small benign-appearing bilateral axillary lymph nodes. No other significant abnormalities are identified. There has been no significant change since the prior study. BI/SCRN MAMM (CAD)W/WILMA BILAT IMPRESSION: Stable bilateral screening mammogram. Yearly follow-up mammogram recommended. (A) ASSESSMENT CATEGORY: BIRADS Category 2: Benign. A letter regarding these results will be sent to the patient by the facility within 30 days. Approximately 10% of breast cancers are not detected by mammography. A normal mammogram should not delay biopsy of a clinically suspicious abnormality. [id number] Electronically Signed: Yariel Leavitt MD at 13:59 EDT ,
== END | disposition home or self-care (01) ==
LOC: OPBI 12:45
PROVIDERS: Referring Provider Nurse Practitioner Women's Health; Visit Provider Nurse Practitioner Women's Health
DX: Z12.31 Encounter for screening mammogram for malignant neoplasm of breast (principal)
CPT/HCPCS: 77063; 77067

== ENCOUNTER → 2023-03-28 | Outpatient (CLI) | payer OTHER, SELFPAY ==
[2023-03-28 16:30] LABS: Absolute Lymphocyte Count 2.78 X10^3/uL (0.83-4.51); Absolute Neutrophil Count 5.8 X10^3/uL (2.0-7.7); Basophil# 0.07 X10^3/uL; Basophil% 0.7 % (0-1); Eosinophil# 0.15 X10^3/uL; Eosinophils% 1.6 % (0-5); Hematocrit 36.4 % (37-47); Hemoglobin 11.6 g/dL (12.0-15.0); Lymphocyte # 2.78 X10^3/ul (0.83-4.51); Lymphocyte % 29.3 % (19-41); Mean Corp Hgb Conc 31.9 g/dL (32-36); Mean Corpuscular Volume 87.7 fL (81-99); Mean Platelet Vol. 12.9 fl (6.2-12.0); Monocyte# 0.66 X10^3/uL; NRBC Flagged by Analyzer 0 % (0-5); Neutrophil # 5.79 X10^3/uL (2.7-7.7); Neutrophil % 61.1 % (47-70); Platelet Count 243 K/mm3 (150-450); RBC Distribution Width SD 45.1 fl (35.1-43.9); Red Blood Count 4.15 M/mm3 (4.2-5.4); White Blood Count 9.5 K/mm3 (4.4-11.0)
[2023-03-28 16:41] LABS: Vitamin D,25 Hydroxy 44.8 ng/mL
[2023-03-28 16:49] LABS: ALB/GLOB Ratio 0.9 RATIO (0.9-2.4); AST(SGOT) 16 U/L (15-37); Alanine Aminotransfer ALT/SGPT 39 U/L (13-56); Albumin, Serum 3.7 g/dL (3.2-5.0); Alkaline Phosphatase 59 U/L (45-117); Anion Gap 7 (5-15); BUN 16 mg/dL (7-18); BUN/Creat Ratio 17.4 RATIO (10-20); Calcium,Total 9.4 mg/dL (8.5-10.1); Chloride 106 mmol/L (98-107); Creatinine, Serum 0.92 mg/dL (0.55-1.02); EST Glomerular Filtration Rate 72 mL/min (>60); Est Glom Filt Rate - Afr Amer 87 mL/min (>60); Globulin 4.2 g/dL (2.2-4.2); Glucose 91 mg/dL (74-106); Potassium 4.3 mmol/L (3.5-5.1); Protein, Total 7.9 g/dL (6.4-8.2); Sodium Level 138 mmol/L (136-145); Thyroid Stim Hormone (TSH) 2.63 uIU/mL (0.358-3.74)
== END | disposition home or self-care (01) ==
LOC: BIMLAB 14:35
PROVIDERS: PCP Internal Medicine; Referring Provider Internal Medicine; Visit Provider Internal Medicine
DX: N92.0 Excessive and frequent menstruation with regular cycle (principal); F41.9 Anxiety disorder, unspecified; F32.9 Major depressive disorder, single episode, unspecified
CPT/HCPCS: 36415; 80053; 82306; 84443; 85025

== ENCOUNTER → 2023-04-30 | Outpatient (CLI) | payer OTHER, SELFPAY ==
--- NOTE | 2023-04-30 12:46 | US_ITS ---
STUDY: ULTRASOUND OF THE FEMALE PELVIS - LIMITED REASON FOR EXAM: Female, 37 years old abnormal bleeding TECHNIQUE: Transabdominal and Transvaginal TECHNICAL QUALITY: Adequate. COMPARISON: None. FINDINGS: The uterus is anteverted and is in a midline position. The uterus measures 8.5 x 6.0 x 4.7 cm. Normal uterine cervix. The endometrium measures 13 mm in thickness, and is hyperechoic. There is no demonstrated endometrial mass. There is no demonstrated myometrial mass. Patient has an IUD in the fundus The right ovary measures 2.9 x 2.5 x 1.4 cm. There is no right ovarian cyst or ovarian mass. There is no visualized right adnexal mass or complex lesion. There is normal arterial and normal venous vascularity. The left ovary measures 3.5 x 3.0 x 1.9 cm. There is a simple 1.8 cm cyst. There is normal arterial and normal venous vascularity. There is no fluid in the cul-de-sac. Bladder is sonographically normal US/Pelvic (Non ) IMPRESSION: Simple left ovarian cyst, no specific follow-up needed. IUD noted in satisfactory position within the fundus of the uterus No suspicious adnexal mass or free fluid Electronically Signed: Omer Ramirez MD at 15:25 EDT ,
--- NOTE | 2023-04-30 12:46 | US_ITS ---
STUDY: ULTRASOUND OF THE FEMALE PELVIS - LIMITED REASON FOR EXAM: Female, 37 years old abnormal bleeding TECHNIQUE: Transabdominal and Transvaginal TECHNICAL QUALITY: Adequate. COMPARISON: None. FINDINGS: The uterus is anteverted and is in a midline position. The uterus measures 8.5 x 6.0 x 4.7 cm. Normal uterine cervix. The endometrium measures 13 mm in thickness, and is hyperechoic. There is no demonstrated endometrial mass. There is no demonstrated myometrial mass. Patient has an IUD in the fundus The right ovary measures 2.9 x 2.5 x 1.4 cm. There is no right ovarian cyst or ovarian mass. There is no visualized right adnexal mass or complex lesion. There is normal arterial and normal venous vascularity. The left ovary measures 3.5 x 3.0 x 1.9 cm. There is a simple 1.8 cm cyst. There is normal arterial and normal venous vascularity. There is no fluid in the cul-de-sac. Bladder is sonographically normal US/Transvaginal Non- IMPRESSION: Simple left ovarian cyst, no specific follow-up needed. IUD noted in satisfactory position within the fundus of the uterus No suspicious adnexal mass or free fluid Electronically Signed: Omer Ramirez MD at 15:25 EDT ,
== END | disposition home or self-care (01) ==
PROVIDERS: PCP Internal Medicine; Referring Provider Nurse Practitioner Women's Health; Visit Provider Nurse Practitioner Women's Health
DX: N92.0 Excessive and frequent menstruation with regular cycle (principal)
CPT/HCPCS: 76830; 76856

== ENCOUNTER → 2023-07-16 | Outpatient (CLI) | payer OTHER, SELFPAY ==
[2023-07-18 21:07] LABS: Hepatitis B Core Ab Total Negative (Negative); QNTFERON TB Mitogen Value > 10.00 IU/mL (.); QNTFERON TB Nil Value 0 IU/mL (.); QNTFERON TB1+ Ag Value 0.01 IU/mL (.); QNTFERON TB2+ Ag Value 0.03 IU/mL (.); QNTIFERON TB Positive Criteria Negative (Negative)
== END | disposition home or self-care (01) ==
LOC: MTLAB 09:23
PROVIDERS: PCP Internal Medicine; Referring Provider Physician Assistant Medical; Visit Provider Physician Assistant Medical
DX: L40.0 Psoriasis vulgaris (principal); L40.59 Other psoriatic arthropathy; Z79.899 Other long term (current) drug therapy
CPT/HCPCS: 36415; 86480; 86704

== ENCOUNTER → 2023-12-25 | Outpatient (CLI) | payer OTHER, SELFPAY ==
[2023-12-28 07:08] LABS: Chlamydia By Nucleic Acid AMP Negative (Negative); Gonococcus By Nucleic Acid AMP Negative (Negative)
== END | disposition home or self-care (01) ==
PROVIDERS: PCP Internal Medicine; Visit Provider Obstetrics & Gynecology
DX: O09.90 Supervision of high risk pregnancy, unspecified, unspecified trimester (principal); Z3A.00 Weeks of gestation of pregnancy not specified
CPT/HCPCS: 87086; 87491; 87591

== ENCOUNTER → 2024-01-23 | Outpatient (CLI) | payer OTHER, SELFPAY ==
[2024-01-23 11:02] LABS: Absolute Lymphocyte Count 1.84 X10^3/uL (0.83-4.51); Absolute Neutrophil Count 8.3 X10^3/uL (2.0-7.7); Basophil# 0.06 X10^3/uL; Basophil% 0.6 % (0-1); Eosinophil# 0.09 X10^3/uL; Eosinophils% 0.8 % (0-5); Hematocrit 34.1 % (37-47); Hemoglobin 11.3 g/dL (12.0-15.0); Lymphocyte # 1.84 X10^3/ul (0.83-4.51); Lymphocyte % 16.9 % (19-41); Mean Corp Hgb Conc 33.1 g/dL (32-36); Mean Corpuscular Hgb 29.7 pg (27.0-32.0); Mean Corpuscular Volume 89.7 fL (81-99); Mean Platelet Vol. 12.4 fl (6.2-12.0); Monocyte# 0.53 X10^3/uL; Monocyte% 4.9 % (0-10); NRBC Flagged by Analyzer 0 % (0-5); Neutrophil # 8.29 X10^3/uL (2.7-7.7); Neutrophil % 76.2 % (47-70); Platelet Count 208 K/mm3 (150-450); RBC Distribution Width CV 12.7 % (11.6-14.6); RBC Distribution Width SD 41.3 fl (35.1-43.9); White Blood Count 10.9 K/mm3 (4.4-11.0)
[2024-01-23 12:08] LABS: HIV - WCH Non-Reactive (Nonreactive); Hepatitis B Surface Antigen Non-Reactive (Nonreactive); Hepatitis C Antibody Non-Reactive (Nonreactive); Rubella IgG Reactive (Nonreactive); Syphilis Antibodies Non-reactive
== END | disposition home or self-care (01) ==
LOC: PAVLAB 10:38
PROVIDERS: Obstetrics & Gynecology; PCP Internal Medicine; Visit Provider Obstetrics & Gynecology
DX: Z34.90 Encounter for supervision of normal pregnancy, unspecified, unspecified trimester (principal)
CPT/HCPCS: 36415; 85025; 86703; 86762; 86780; 86803; 86850; 86900; 86901; 87340

== ENCOUNTER → 2024-05-22 | Outpatient (CLI) | payer OTHER, SELFPAY ==
[2024-05-24 13:08] LABS: QNTFERON TB Mitogen Value > 10.00 IU/mL (.); QNTFERON TB Nil Value 0.02 IU/mL (.); QNTFERON TB1+ Ag Value 0.03 IU/mL (.); QNTFERON TB2+ Ag Value 0.03 IU/mL (.); QNTIFERON TB Positive Criteria Negative (Negative)
== END | disposition home or self-care (01) ==
PROVIDERS: PCP Internal Medicine; Referring Provider Physician Assistant; Visit Provider Physician Assistant
DX: L40.0 Psoriasis vulgaris (principal); Z79.899 Other long term (current) drug therapy
CPT/HCPCS: 36415; 86480

== ENCOUNTER → 2024-10-22 | Outpatient (CLI) | payer OTHER, SELFPAY ==
[2024-10-22 12:09] LABS: Absolute Lymphocyte Count 2.15 X10^3/uL (0.83-4.51); Absolute Neutrophil Count 6.7 X10^3/uL (2.0-7.7); Basophil# 0.06 X10^3/uL; Basophil% 0.6 % (0-1); Eosinophil# 0.08 X10^3/uL; Eosinophils% 0.8 % (0-5); Hemoglobin 12.9 g/dL (12.0-15.0); Lymphocyte # 2.15 X10^3/ul (0.83-4.51); Lymphocyte % 22.3 % (19-41); Mean Corp Hgb Conc 33.1 g/dL (32-36); Mean Corpuscular Hgb 29.1 pg (27.0-32.0); Mean Corpuscular Volume 87.8 fL (81-99); Mean Platelet Vol. 12.8 fl (6.2-12.0); Monocyte# 0.61 X10^3/uL; Monocyte% 6.3 % (0-10); NRBC Flagged by Analyzer 0 % (0-5); Neutrophil # 6.68 X10^3/uL (2.7-7.7); Neutrophil % 69.6 % (47-70); Platelet Count 297 K/mm3 (150-450); RBC Distribution Width CV 12.7 % (11.6-14.6); RBC Distribution Width SD 41.1 fl (35.1-43.9); Red Blood Count 4.44 M/mm3 (4.2-5.4); White Blood Count 9.6 K/mm3 (4.4-11.0)
[2024-10-22 13:28] LABS: HIV Nonreactive (Nonreactive); Hepatitis B Surface Antigen Nonreactive (Nonreactive); Hepatitis C Antibody Nonreactive (Nonreactive); Rubella IgG REAC (Nonreactive); Syphilis Antibodies Nonreactive (Nonreactive)
[2024-10-24 04:07] LABS: Chlamydia By Nucleic Acid AMP Negative (Negative); Gonococcus By Nucleic Acid AMP Negative (Negative)
== END | disposition home or self-care (01) ==
PROVIDERS: PCP Internal Medicine; Referring Provider Obstetrics & Gynecology; Visit Provider Obstetrics & Gynecology
DX: O09.90 Supervision of high risk pregnancy, unspecified, unspecified trimester (principal); Z3A.00 Weeks of gestation of pregnancy not specified
CPT/HCPCS: 36415; 84439; 84443; 85025; 86703; 86762; 86780; 86803; 86850; 86900; 86901; 87086; 87088; 87340; 87491; 87591

== ENCOUNTER 2024-11-19 05:32 | Day surgery (SDC) | payer OTHER, SELFPAY ==
[2024-11-19] VITALS (9 sets, daily range): BP systolic 109–142; BP diastolic 64–85; PULSE 58–92; RESP 14–16; TEMP 36.5–37.1; O2SAT 99–100; BMI 30.5
[2024-11-19] MEDS: 0.9% Normal Saline (1000mL) 1,000 ML 15 ML IV (06:18)
[2024-11-19] MEDS: Doxycycline 100 MG CAPSULE PO (06:19)
[2024-11-19 06:41] LABS: Hematocrit 32.5 % (37-47); Hemoglobin 11.4 g/dL (12.0-15.0); Mean Corp Hgb Conc 35.1 g/dL (32-36); Mean Corpuscular Hgb 30.2 pg (27.0-32.0); Mean Corpuscular Volume 86.2 fL (81-99); Mean Platelet Vol. 11.8 fl (6.2-12.0); Platelet Count 224 K/mm3 (150-450); RBC Distribution Width CV 12.8 % (11.6-14.6); RBC Distribution Width SD 39.8 fl (35.1-43.9); Red Blood Count 3.77 M/mm3 (4.2-5.4); White Blood Count 8.2 K/mm3 (4.4-11.0)
--- NOTE | 2024-11-19 06:47 | PCM.PRE.AN2 ---
ASA Classification* ASA Classification ASA Classification: 2 Assessment & Plan Anesthesia* Anesthesia Assessment Anesthesia Assessment: Discussed sedation and/or anesthesia options, risks, benefits, and alternatives with patient/parents/legal guardian/POA. Questions invited. The patient/parents/legal guardian/POA seems to understand and agrees to proceed with anesthesia plan. Reviewed the physical assessment, medical history, allergy history and patient home medications list prior to surgery/procedure/anesthetic and documented any changes. Performed airway and anesthesia risk assessments. Anesthesia Type Anesthesia Type: MAC Anesthesia Focused Assessment* Temperature: 98.7 F Pulse Rate: 58 Blood Pressure: 109/64 Respiratory Rate: 16 Pulse Ox: 100 Airway Assessment Mouth opens: >3 cm Mallampati Score: II Focused Labs Anesthesia Preop lab: CBC WBC 8.2 K/mm3 (4.4-11.0) 11/19/24 06:25 11/19/24 RBC 3.77 M/mm3 (4.2-5.4) L 11/19/24 06:11/19/24 Hgb 11.4 g/dL (12.0-15.0) L 11/19/24 06:25 11/19/24 Hct 32.5 % (37-47) L 11/19/24 06:25 11/19/24 Plt Count 224 K/mm3 (150-450) 11/19/24 06:25 11/19/24 CHEMISTRY Potassium 4.3 mmol/L (3.5-5.1) 03/28/23 14:35 03/28/23 Sodium 138 mmol/L (136-145) 03/28/23 14:35 03/28/23 BUN 16 mg/dL (7-18) 03/28/23 14:35 03/28/23 Creatinine 0.92 mg/dL (0.55-1.02) 03/28/23 14:35 03/28/23 Glucose 91 mg/dL (74-106) 03/28/23 14:35 03/28/23 TSH 1.330 uIU/mL (0.300-4.200) 10/22/24 09:13 10/22/24 COAG HCG, Quant 203 mIU/mL (1-3) H 01/30/20 08:25 01/30/20 Urine Test Negative Negative 08/18/21 11:33 08/18/21 Tst Clinic Negative 09/04/22 15:34 09/04/22 Pre-Assessment Diagnosis/Proposed Procedure Planned Operative Procedure(s): SUCTION D&C Anesthesia History Anesthesia History - air sampling and monitoring: Anesthesia History - air sampling and monitoring Hx Hospitalization No 11/18/24 15:58 Any Problems With Anesthesia No 11/18/24 15:58 Cholinesterase deficiency No 10/23/24 15:06 You/Your Family Experience No 11/18/24 15:58 fever (hyperthermia) with Relationship Recent Exposure to Contagious No 11/19/24 06:02 Disease Does patient have nerve No 11/18/24 15:58 stimulator Patient instructed to have device shut off --Does patient have Pacemaker No 11/19/24 06:02 or ICD? When Was Last Pacemaker Check QUESTION #4 FULL TEXT: You/Your Family Experience fever (hyperthermia) with Anesthesia Last Oral Intake Last Oral intake: Last Oral Intake NPO since 19:00 11/19/24 06:02 Meds taken in AM with sips of Yes 11/19/24 06:02 water? Meds patient instructed to LEVOTHYROXINE 11/19/24 06:02 take am of surgery PROZAC DOXYCYCLINE PRE-OP PONV PONV - air sampling and monitoring: PONV - air sampling and monitoring Female Yes 11/18/24 15:58 HX of Motion Sickness No 11/18/24 15:58 HX of N/V After Surgery No 11/18/24 15:58 Non-Smoker Yes 11/18/24 15:58 Duration of Surgery greater No 11/18/24 15:58 than 60 minutes Number of Risk Factors 2 11/18/24 15:58 PONV Score Moderate Risk 11/18/24 15:58 Height & Weight Height & Weight: Anesthesia: Height & Weight Height 5 ft 11/19/24 06:02 Weight: 71 kg 11/19/24 06:02 Body Mass Index (BMI) 30.5 11/19/24 06:02 Respiratory Assessment Respiratory Assessment - air sampling and monitoring: Respiratory Tract Infection Hx - air sampling and monitoring Hx Respiratory Tract Infection No 11/18/24 15:58 STOP Sleep Apnea STOP Sleep Apnea - air sampling and monitoring: STOP Sleep Apnea - air sampling and monitoring Hx Hypertension No 11/18/24 15:58 Hx Sleep Apnea No 11/18/24 15:58 CPAP BIPAP Do you snore loudly (louder No 11/18/24 15:58 than talking or can be heard Do you often feel tired/ No 11/18/24 15:58 fatigued/ sleepy during daytime? Has anyone observed you stop No 11/18/24 15:58 breathing during sleep? STOP Results Negative 11/18/24 15:58 QUESTION #5 FULL TEXT : Do you snore loudly (louder than talking or can be heard through closed doors)? 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 Specify any problems Hx of Preganancy in last 3 Yes 11/18/24 15:58 Months Nurse Filling Out Transfusion DSCHRIBER 11/18/24 15:58 & Questions: Date: 11/18/24 11/18/24 15:58 Time: 15:59 11/18/24 15:58 Patient unable to answer at this time (ie. confused, unrespo /Reproduction History /Reproductive History - air sampling and monitoring: /Reproductive Hx- air sampling and monitoring Hx Now Yes 11/18/24 15:58 Gestational Age (in weeks): EDC: Hx Hx Para Hx Section SAB No 11/18/24 15:58 Active Medications Active Medications: Current Medications Generic Name Dose Route Start Last Admin Trade Name Freq PRN Reason Stop Dose Admin Sodium Chloride 1,000 mls @ 15 mls/hr 11/19/24 06:00 11/19/24 06:18 IV 15 mls/hr .Q48H HYUN Administration PFSH Medical History (Updated 11/18/24 @ 16:01 by Laurence Sol) Thyroid disease Hemorrhoids Trisomy 13 of fetus Heart murmur Kidney stones Anxiety Psoriatic arthritis Cyst of right breast Infertility Home Medications ?Medication ?Instructions ?Recorded ?Last Taken ?Type fluoxetine 40 mg capsule (Prozac) 60 mg PO DAILY 11/01/20 11/19/24 History certolizumab pegol 400 mg/2 mL 200 mg subcut Q2W 12/14/23 11/18/24 History (200 mg/mL x2) subcutaneous syringe kit (Cimzia) multivitamin no.47-iron fum 27 1 cap PO DAILY 12/14/23 11/19/24 History mg-folate no.1 1 mg-dha 300 mg capsule (PNV-DHA) levothyroxine 25 mcg capsule 50 mcg PO DAILY 10/10/24 11/19/24 History Allergy/AdvReac Type Severity Reaction Status Date / Time citalopram hydrobromide Allergy Other Verified 11/18/24 15:56 (From Celexa) Family History Grandmother Breast cancer Hypertension Father Hypertension Cancer kidney ca Grandfather Suicide attempt Surgical History History of D&C History of lumpectomy of right breast History of carpal tunnel surgery of left wrist History of carpal tunnel surgery of right wrist delivery delivered History of umbilical hernia Social History adopted: No household members: spouse and children number of children: 3 current occupational status: employed 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 [employer] current occupational exposures/hazards: No pets and animals: Yes pets and animals: cat(s) and dog(s) history of recent travel: No sexually active: Yes Smoking Status: Never smoker Electronic Cigarette Use: not used second hand exposure: No alcohol intake: current alcohol intake frequency: holidays/special occasions only details: Not while substance use type: does not use well-balanced diet: daily or most days caffeine: Yes Type: coffee Number of servings: 1 eating out: rarely or never during the past year weight has: remained stable what type of physical activity do you participate in: walking and running frequency: 1-2 times per week duration: 15-30 minutes/day thais/latter day: Pentecostal seatbelt use: always do you feel safe at home: Yes additional social history: : 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
--- NOTE | 2024-11-19 07:10 | HP.PCM_ITS ---
History and Physical Date of Admission: 11/19/24 [facility]'s [address], [address] [place] [address] OFFICE VISIT Date of Service: 11/18/24 MR#: [id number] Acct: [id number] Name: JAMILAH TEE Rep #: [id number] : 1985 Provider: Dr. Stormy Patiño DO Age/Sex: 39/F Location[place] [facility] [place]: Draft Intake Vital Signs 07/30/2411:37 10/24/2513:13 11/18/2513:00 11/18/2513:02 Height 5 ft 5 ft 5 ft 5 ft Weight: 154 lb 8 oz BMI 30.2 BP 134/81 H Intake Visit Reasons: 15wk ob Surveillance Supervisor Required: No Is patient in pain?: No Allergies citalopram hydrobromide (From Celexa) Allergy (Verified 11/18/24 14:00) Other Medications ?Medication ?Instructions ?Recorded ?Confirmed ?Type fluoxetine 40 mg capsule (Prozac) 60 mg PO DAILY 11/01/20 11/18/24 History certolizumab pegol 400 mg/2 mL 200 mg subcut Q2W 12/14/23 11/18/24 Hist ory (200 mg/mL x2) subcutaneous syringe kit (Cimzia) estradiol 2 mg tablet 2 mg PO BID 12/14/23 11/18/24 History multivitamin no.47-iron fum 27 cap PO 12/14/23 11/18/24 History mg-folate no.1 1 mg-dha 300 mg capsule (PNV-DHA) levothyroxine 25 mcg capsule 50 mcg PO DAILY 10/10/24 11/18/24 Histor y progesterone 50 mg/mL 100 mg IM DAILY 10/10/24 11/18/24 Histor y intramuscular oil Last Menstrual Period: 07/03/24 Zika: Zika virus screening: Negative : No PFSH PFSH Medical History Hemorrhoids Trisomy 13 of fetus Heart murmur Kidney stones Anxiety Psoriatic arthritis Cyst of right breast Infertility Surgical History History of D&C History of lumpectomy of right breast History of carpal tunnel surgery of left wrist History of carpal tunnel surgery of right wrist delivery delivered History of umbilical hernia Family History Grandmother Breast cancer HypertensionFather Hypertension Cancer kidney caGrandfather Suicide attempt Social History adopted: No household members: spouse and children number of children: 3 current occupational status: employed 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 current occupational exposures/hazards: No pets and animals: Yes pets and animals: cat(s) and dog(s) history of recent travel: No sexually active: Yes Smoking Status: Never smoker Electronic Cigarette Use: not used second hand exposure: No alcohol intake: current alcohol intake frequency: holidays/special occasions only details: Not while substance use type: does not use well-balanced diet: daily or most days caffeine: Yes Type: coffee Number of servings: 1 eating out: rarely or never during the past year weight has: remained stable what type of physical activity do you participate in: walking and running frequency: 1-2 times per week duration: 15-30 minutes/day thais/yazdanism: Religious seatbelt use: always do you feel safe at home: Yes additional social history: : 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 Date Name GA/Weeks Outcome Route Bth Weight Infant Gen Labor Lgth Anesthesia Del Locatn Provider FOB 03/25/13 Marla 38 live - full term 5lb 14oz Female epidural w[facility] Luke 06/14/17 Case 38 live - full term 8lb 3oz Male spinal [facility] Luke 09/24/20 Flako 38 live - full term 6lbs 10oz Female spinal [facility] Luke 02/22/24 Baby Estefany 17 still Male [facility] Delivery Date: 03/25/13 Last Updated by: Nga Maria RN anxiety & depression Delivery Date: 06/14/17 Last Updated by: Nga Maria RN No complications. IVF Delivery Date: 09/24/20 Last Updated by: Nga Maria RN PROM. IVF . Delivery Date: 02/22/24 Last Updated by: Nga Maria RN Trisomy 13. In vitro . D&E at [facility] 15wk ob Details: JAMILAH TEE is a 39 year old who presents for ob visit and found to have no FHT confirmed no color flow, confirmed loss. no vb cramping. ROS Const Reports system reviewed and no additional complaints, except as documented Card Reports system reviewed and no additional complaints, except as documented Resp Reports system reviewed and no additional complaints, except as documented GI Reports system reviewed and no additional complaints, except as documented, Reports nausea Reports system reviewed and no additional complaints, except as documented Musc Reports system reviewed and no additional complaints, except as documented all other systems reviewed and negative Exam Const General: cooperative, healthy appearing, comfortable HENMT Head: normal to inspection Nose: external nose normal Face and sinus: normal facial exam Neck Neck: normal visual inspection, full ROM, no lymphadenopathy Thyroid: thyroid normal Chest Chest palpation & inspection: normal inspection of the chest Resp Effort & Inspection: normal respiratory effort GI Inspection: normal to inspection Palpation: soft, other (gravid uterus) 14 weeks Extrem General: pedal edema OB Visit TIFFANIE Calculator Estimated Delivery Date Method Current WG Current Estimate 05/14/25 Conception 14w 5d Expected Delivery Route/Plan for repeat cs with SM Specific Issue/Plans Covid status: [] Flu vaccine: [] Tdap vaccine: [] Rhogam: [] LARC form signed: [] Problem list reviewed and updated with the most current plan of care details and appropriate orders placed. Relevant counseling for the gestational age provided. Continue routine care and follow up unless otherwise noted in visit notes/problem list details Initial Weight: Not Recorded Date -?-?-?-?-?-?-?-?-?-?-?-?- EGA Weight BP Urine Prot -?-?-?-?-?-?-?-?-?-?-?-?- Glucose FHR FuHt Pres Dilation -?-?-?-?-?-?-?-?-?-?-?-?- Effaced St Visit Note 10/22/24-?-?-?-?-?-?-?-?-?-?-?-?- 10w 6d 151 lb 6 oz 124/76 -?-?-?-?-?-?-?-?-?-?-?-?- 160 -?-?-?-?-?-?-?-?-?-?-?-?- JV- IVF . CRL meauring 3 days ahead of schedule. no change in TIFFANIE. Declines NIPT. had embryo tested. (Last time embryo was tested turned out trisomy 13 though. patient understands this and still wants to hold off on NIPT). new ob labs today. ACOG First Trimester First Trimester: Discussed Coding Diagnoses Hemorrhoids K64.9 History of loss Z87.59 Conceived by in vitro fertilization Z78.9 AMA (advanced maternal age) multigravida 35+ O09.529 History of delivery, currently O34.219 Supervision of high-risk O09.90 14 weeks gestation of Z3A.14 Weeks of gestation: 14 weeks Psoriasis L40.9 Heart murmur R01.1 Psoriatic arthritis L40.50 Anxiety and depression F41.9; F32.9 Missed with demise before 20 completed weeks of gestation O02.1 Assessment and Plan Assessment and Plan (1) Hemorrhoids: Status: Acute (2) History of loss: Status: Acute Comment: Last - Estefany: Stillbirth @ 17weeks, Trisomy 13, D&E @ [facility] (3) Conceived by in vitro fertilization: Status: Acute Comment: Transfer date 08/26 (5day embryo) (4) AMA (advanced maternal age) multigravida 35+: Status: Acute (5) History of delivery, currently : Status: Acute Comment: x3, desires rpt csec (6) Supervision of high-risk : Status: Acute Comment: , TIFFANIE 05/14/25, PC: Jim Gutiérrez Kennedy & (Estefany - stillbirth), : Hannah moctezuma (7) : Status: Acute Qualifiers: Weeks of gestation: 14 weeks Qualified Code(s): Z3A.14 - 14 weeks gestation of Comment: Discussed genetic/carrier testing - undecided (8) Psoriasis: Status: Acute (9) Heart murmur: Status: Acute Comment: as a baby (10) Psoriatic arthritis: Status: Acute Comment: on Symzia. (11) Anxiety and depression: Status: Acute Comment: prozac, counseling and psychiatrist. (12) Missed with demise before 20 completed weeks of gestation: Status: Acute Orders: Orders POC Urinalysis 2 Dip (Clinic) Today After discussing the patient's diagnosis and treatment plan options, patient wishes to proceed with surgical management. I have discussed with the patient the risks, benefits, and alternatives of the procedure which include but are not limited to risks of anesthesia, bleeding, infection, possible damage to bowel, bladder, or surrounding vasculature which could lead to additional surgery to evaluate any complications. Patient agrees to procedure and wishes to proceed. ACOG/uptodate references given for additional information regarding procedure. UPDATE- I have seen the patient and performed any clinically relevant updates to the history and physical exam. Ernestine Villa MD
--- NOTE | 2024-11-19 07:30 | POC_PTH ---
PATIENT: JAMILAH TEE LOC: [facility] [place][id number] AGE/SX: 39/F ROOM: RE11/19/[address]: Dr. Ernestine Villa MD : 1985 BED: DIS: 11/19/2024 SPEC #: [id number] RECD: 11/19/24 09:01 STATUS: KATELIN ALEXUS #: [id number] JANIYA: 11/19/24 07:[address]: Ernestine Villa DEPT: SURGICAL PATHOLOGY RECD BY: Jf King ENTERED: 11/19/24 09:01 SP TYPE: PROD CONC OTHR DR: Dr. Arlene Tran MD Tissues: A - Product of conception, NOS Procedures: Surgery Specimen Level IV HEADER OPERATION: Dilation and evacuation, suction, ANORA PRE-OP DIAGNOSIS: Missed with demise before 20 completed weeks of gestation TISSUE SUBMITTED: A- Products of conception, ANORA TESTING MICROSCOPIC DIAGNOSIS A. Uterine contents, Products of Conception, Dilation and Evacuation: - Immature chorionic villi, segment of umbilical cord and tissue, consistent with products of conception. MICROSCOPIC DESCRIPTION Slides are reviewed. GROSS DESCRIPTION A. Received fresh in a container labeled with the patient's name, date of , and products of conception are 2 collection devices, each filled with soft tissue. The specimen is handled in a sterile manner, and a portion of saenz-pink and feathery, possible chorionic villous tissue is submitted for genetic testing. The specimen is then placed in formalin. Received are multiple red-saenz and saenz-pink fragments of soft tissue admixed with blood and mucus measuring 14.0 x 14.0 x 4.0 cm in aggregate. The contents are searched, and multiple saenz-pink, feathery fragments of chorionic villous tissue are identified measuring 7.5 x 6.3 x 4.0 cm in aggregate and approximately 54 g altogether. No grape-like clusters are grossly recognized. Multiple macerated parts are identified measuring 6.0 x 5.0 x 3.5 cm in aggregate and approximately 22.4 g altogether. 1 intact hand is identified with 5 digits, exhibiting a hand length of 1.0 cm. Two intact feet are identified, each with 5 digits, and exhibiting a foot length of 1.1 cm. A pink-matthews possible umbilical cord is discovered measuring 9.3 cm in length by 0.2 cm in diameter. A distinct number of vessels is grossly indeterminate. Clinical Psychology Professor sections:A1-2. Chorionic villous tissueA3. Possible umbilical cord SB 11/19/2024 CPT:35383 ADDENDUM ADDENDUM ADDENDUM ADDENDUM ADDENDUM ADDENDUM ADDENDUM ADDENDUM 12/11/2024 08:12 ADDENDUM 12/11/2024 08:12 ADDENDUM 12/11/2024 08:12 ADDENDUM 12/11/2024 08:12 ADDENDUM 12/11/2024 08:12 ANORA MICROARRAY CHROMOSOME ANALYSIS WITH PARENTAL SUPPORT RESULT: Normal male MICROARRAY RESULT: arr (1-22)x2, (XY)x1 CLINICAL INTERPRETATION: Normal male result. Please see complete report in e-chart or EMR
[2024-11-19] MEDS: Oxytocin 10 UNITS/ML Vial (07:53)
[2024-11-19] MEDS: miSOPROStol 200 MCG Tablet (08:02)
[2024-11-19] MEDS: TRANEXAMIC ACID 1,000 MG in 0.9% Normal Saline (100mL Bag) 100 ML 660 MG IV (08:10)
--- NOTE | 2024-11-19 08:23 | PCM.OPRPT ---
Problems Associated Problem List Diagnoses (1) Missed with demise before 20 completed weeks of gestation: Procedures Urinary/Genital 52xxx-59xxx: 25499 Trmt of incomplete Ab, any TM Operative Report (Standard) Operative Information Date of Procedure: 11/19/24 Pre-Operative Diagnosis: see problem list comments Post-Operative Diagnosis: same Surgery/Procedure Performed: suction dilation and curettage embedded software test engineer: No Type of Anesthesia: IV Sedation and Local RN Documented Start/Stop Times: Operation Date: 11/19/24 07:30 Case Time Into Pre-Op 11/19/24 05:35 Out of Pre-Op 11/19/24 07:20 Anesthesia Start 11/19/24 07:24 Into Room 11/19/24 07:24 Procedure Start 11/19/24 07:50 Procedure End 11/19/24 08:18 Procedure Start Time: 07:50 Procedure Stop Time: 08:18 Select all DRAINS/GRAFTS/IMPLANTS that apply: None Estimated Blood Loss: 1000 Specimen collected: Yes Description of specimen(s) removed: retained POC Description of surgery: Patient was taken to the operating room and placed under MAC local anesthesia. She was prepped and draped in the normal sterile fashion the dorsal lithotomy position. Bladder was drained of clear urine, TXA was ordered preop to have in the room and pitocin given at the beginning of the procedure, anterior lip of the cervix was grasped and the uterus sounded to 15 cm. Cervix was progressively dilated to allow passage of a 14 mm suction curette. the dilator to allow passage of 16mm curette was unavailable. under ultrasound guidance, Progressive passes were made removing the retained products of conception, this took multiple passes and using a ring forceps to aid in tissue removal also was used, but ultimately without complication, just larger EBL. Sharp curettage was also used to help with product removal and confirmed complete removal of the retained products. cytotec and TXA were given. All instruments were removed from the vagina and excellent hemostasis was noted and the patient was taken to recovery in stable condition. CBC will be done in recovery. Surgical Findings: demise measuring 13 weeks uterus measuring 15 weeks Complications Complications: No
--- NOTE | 2024-11-19 08:28 | DCINST_ITS ---
Discharge Instructions Diet Discharge Diet: No restrictions DC O2, CPAP, BIPAP needs Home O2 Discharge instructions: No Dressing / Incision Discharge Activity: Return to Normal Activity, May Shower and May Take a Tub Bath (after 1 week) May resume sexual activity in: 1-2 weeks Weight Bearing Status: Weight bearing as tolerated Lifting Restrictions: none Dressing / Incision Call your doctor if you observe: Fever of 101 or Higher, Using more than 1 pad per hour, Shortness of breath and Uncontrolled pain Follow Up Care Please Follow Up With: Ernestine Villa MD When: Call [phone] to schedule appointment. Test Results: Test results from this visit will be discussed in further detail at your follow- up appointment, if applicable. Discharge Plan Admission Attending Provider: Ernestine Villa Primary Care Provider: Arlene Tran Instructions Print Language: Bermudian Discharge Orders/Prescriptions Prescriptions: No Action fluoxetine [Prozac] 40 mg capsule 60 mg PO DAILY Cimzia 400 mg/2 mL (200 mg/mL x 2) syringe kit 200 mg subcut Q2W PNV-DHA 27 mg iron-1 mg -300 mg capsule 1 cap PO DAILY levothyroxine 25 mcg capsule 50 mcg PO DAILY Referrals / Follow Up: Arlene Tran MD [Primary Care Provider] - Disposition Disposition (needs filled in before D/C Order can be placed): Home, Self Care
--- NOTE | 2024-11-19 08:39 | PCM.POST.ANE ---
Anesthesia: Postop Eval I Current Vital Signs Temperature: 98.8 F Pulse Rate: 72 Blood Pressure: 121/72 Respiratory Rate: 14 Pulse Ox: 99 Assessment Airway patent: Yes Spontaneous unlabored respirations: Yes Mental status: Awake nausea: No Vomiting: No Anesthesia Complication: No Fluid Hydration Crystalloid volume administer (ml): 1,200 Total IV fluid infused: 1,200 Progress Note Anesthesia document: Postop Eval 1 completed: Yes
[2024-11-19 08:43] LABS: Absolute Lymphocyte Count 1.34 X10^3/uL (0.83-4.51); Absolute Neutrophil Count 4.6 X10^3/uL (2.0-7.7); Basophil# 0.04 X10^3/uL; Basophil% 0.6 % (0-1); Eosinophil# 0.08 X10^3/uL; Eosinophils% 1.2 % (0-5); Hematocrit 32.2 % (37-47); Hemoglobin 11.3 g/dL (12.0-15.0); Lymphocyte # 1.34 X10^3/ul (0.83-4.51); Lymphocyte % 20.5 % (19-41); Mean Corp Hgb Conc 35.1 g/dL (32-36); Mean Corpuscular Hgb 30.6 pg (27.0-32.0); Mean Corpuscular Volume 87.3 fL (81-99); Mean Platelet Vol. 11.2 fl (6.2-12.0); Monocyte# 0.45 X10^3/uL; Monocyte% 6.9 % (0-10); NRBC Flagged by Analyzer 0 % (0-5); Neutrophil % 70.3 % (47-70); Platelet Count 192 K/mm3 (150-450); RBC Distribution Width CV 12.8 % (11.6-14.6); RBC Distribution Width SD 40.6 fl (35.1-43.9); Red Blood Count 3.69 M/mm3 (4.2-5.4); White Blood Count 6.5 K/mm3 (4.4-11.0)
--- NOTE | 2024-11-19 09:23 | POSTOPAN2_ITS ---
Anesthesia Postop Eval I Sum Postop Eval Completion status Anesthesia document: Postop Eval 1 completed: Yes Anesthesia Postop Eval I Summary Anesthesia Postop Eval I Summary: Anesthesia Postop Eval I: Assessment Summary Airway patent Yes 11/19/24 08:40 ORACLE FINANCIAL APPLICATION DEVELOPER.HBARR Spontaneous unlabored Yes 11/19/24 08:40 ORACLE FINANCIAL APPLICATION DEVELOPER.HBARR respirations Mental status Awake 11/19/24 08:40 ORACLE FINANCIAL APPLICATION DEVELOPER.HBARR nausea No 11/19/24 08:40 ORACLE FINANCIAL APPLICATION DEVELOPER.HBARR Vomiting No 11/19/24 08:40 ORACLE FINANCIAL APPLICATION DEVELOPER.HBARR Anesthesia Postop Eval I: Fluid Summary Crystalloid volume administer 1,200 11/19/24 08:40 ORACLE FINANCIAL APPLICATION DEVELOPER.HBARR (ml) Colloids volume administered ( ml) Blood Product volume administered (ml) Total IV fluid infused 1,200 11/19/24 08:40 ORACLE FINANCIAL APPLICATION DEVELOPER.HBARR Anesthesia Postop Eval I: Summary Notes Anesthesia Complication No 11/19/24 08:40 ORACLE FINANCIAL APPLICATION DEVELOPER.HBARR Anesthesia Complication Comment: Post-operative progress note Anesthesia: Postop Eval II Evaluation Mental status: Awake Pain Level: 0 nausea: No Vomiting: No
--- NOTE | 2024-11-19 09:23 | PCM.POSTANE2 ---
Anesthesia Postop Eval I Sum Postop Eval Completion status Anesthesia document: Postop Eval 1 completed: Yes Anesthesia Postop Eval I Summary Anesthesia Postop Eval I Summary: Anesthesia Postop Eval I: Assessment Summary Airway patent Yes 11/19/24 08:40 TEST ENG.HBARR Spontaneous unlabored Yes 11/19/24 08:40 TEST ENG.HBARR respirations Mental status Awake 11/19/24 08:40 TEST ENG.HBARR nausea No 11/19/24 08:40 TEST ENG.HBARR Vomiting No 11/19/24 08:40 TEST ENG.HBARR Anesthesia Postop Eval I: Fluid Summary Crystalloid volume administer 1,200 11/19/24 08:40 TEST ENG.HBARR (ml) Colloids volume administered ( ml) Blood Product volume administered (ml) Total IV fluid infused 1,200 11/19/24 08:40 TEST ENG.HBARR Anesthesia Postop Eval I: Summary Notes Anesthesia Complication No 11/19/24 08:40 TEST ENG.HBARR Anesthesia Complication Comment: Post-operative progress note Anesthesia: Postop Eval II Evaluation Mental status: Awake Pain Level: 0 nausea: No Vomiting: No
[2024-11-19 10:13] LABS: Pathology Specimen OB SEE PATHOLOGY REPORT
== END 2024-11-19 09:47 | disposition home or self-care (01) ==
LOC: SDC 05:32 → AC 05:33
PROVIDERS: PCP Internal Medicine; Referring Provider Obstetrics & Gynecology; Visit Provider Obstetrics & Gynecology
PROC: (CPT 59812; principal; 2024-11-19 07:15)
DX: O02.1 Missed abortion (principal); Z87.59 Personal history of other complications of pregnancy, childbirth and the puerperium
CPT/HCPCS: 59812; 01965; 85025; 85027; 86850; 86900; 86901; 88305; J2405

== ENCOUNTER → 2025-05-25 | Outpatient (CLI) | payer OTHER, SELFPAY ==
[2025-05-27 13:08] LABS: QNTFERON TB Mitogen Value > 10.00 IU/mL (.); QNTFERON TB Nil Value 0.06 IU/mL (.); QNTFERON TB1+ Ag Value 0.12 IU/mL (.); QNTFERON TB2+ Ag Value 0.08 IU/mL (.); QNTIFERON TB Positive Criteria Negative (Negative)
== END | disposition home or self-care (01) ==
PROVIDERS: PCP Internal Medicine; Referring Provider Physician Assistant Medical; Visit Provider Physician Assistant Medical
DX: L40.0 Psoriasis vulgaris (principal)
CPT/HCPCS: 36415; 86480